=== PATIENT | female | born 1940 | race Caucasian/White ===

== ENCOUNTER → 2020-09-21 | Outpatient (CLI) | payer MEDICARE, OTHER ==
--- NOTE | 2020-09-21 11:05 | CT ---
EXAMINATION TYPE: CT brain wo con DATE OF EXAM: 09/21/2020 COMPARISON: Dizziness HISTORY: Dinzziness CT DLP: 1029.9 mGycm Automated exposure control for dose reduction was used. FINDINGS: There is moderate generalized degenerative change of the slightly greater central component. Low-atte nuation in the white matter is nonspecific. Tiny hypodensities within the basal ganglia could represe nt prominent Virchow-Jacky spaces or tiny remote lacunar infarct. No midline shift or mass effect. Intracranial atherosclerotic changes seen. No acute hemorrhage. Tiny calcification punctate within the right basal ganglia. Craniocervical junction maintained. Partially empty sella turcica. Nasal septal deviation seen with m inimal changes of chronic sinusitis. Calvarium intact. Orbits symmetric. IMPRESSION: 1. Degenerative and nonspecific white matter changes most typical remote ischemia. Greater central co mponent to the ventricular dilation raises the possibility of normal pressure hydrocephalus. Correlat e clinically.
== END | disposition home or self-care (01) ==
LOC: RADCTMAIN 10:13
PROVIDERS: ATTEND Family Medicine
DX: G31.9 Degenerative disease of nervous system, unspecified (principal)
CPT/HCPCS: 70450

== ENCOUNTER → 2021-09-26 | Outpatient (CLI) | payer MEDICARE, OTHER ==
--- NOTE | 2021-09-29 09:15 | MM ---
Reason for exam: screening (asymptomatic). History: Patient is postmenopausal. Benign stereotactic core biopsy of the left breast, 2013. Physical Findings: A clinical breast exam by your physician is recommended on an annual basis and results should be correlated with mammographic findings. MG 3D Screening Mammo W/Cad Bilateral CC and MLO view(s) were taken. No prior studies available for comparison. Finding: There are typically benign dystrophic, course, diffuse/scattered calcifications in both breasts. There is no discrete abnormality. ASSESSMENT: Benign, BI-RAD 2 RECOMMENDATION: Routine screening mammogram of both breasts in 1 year.
== END | disposition home or self-care (01) ==
LOC: RADMAMWWP 12:14
PROVIDERS: ATTEND Family Medicine
DX: Z12.31 Encounter for screening mammogram for malignant neoplasm of breast (principal)
CPT/HCPCS: 77063; 77067

== ENCOUNTER 2023-03-22 07:58 | Emergency (ER) | payer MEDICARE, OTHER ==
[2023-03-22 08:49] LABS: Appearance,Urine Clear (Clear); Bilirubin,Urine Negative (Negative); Blood,Urine Negative (Negative); Color,Urine Yellow; Glucose,Urine (UA) 1+ (Negative); Ketones,Urine Negative (Negative); PH, Urine 5.5 (5.0-8.0); Protein,Urine Trace (Negative); Specific Gravity,Urine >1.030 (1.001-1.035)
[2023-03-22 08:50] LABS: Leukocyte Esterase,Urine Negative (Negative); Nitrite,Urine Negative (Negative); Urobilinogen,Urine <2.0 mg/dL (<2.0)
[2023-03-22 08:58] LABS: Amphetamine Screen,Urine Not Detected (NotDetected); Barbiturate Screen,Urine Not Detected (NotDetected); Benzodiazepines Screen,Urine Not Detected (NotDetected); Cocaine Screen,Urine Not Detected (NotDetected); Methadone Screen, Urine Not Detected (NotDetected); Opiate Screen,Urine Not Detected (NotDetected); Oxycodone Screen, Urine Not Detected (NotDetected); Phencyclidine Screen,Urine Not Detected (NotDetected); Tricyclic Antidepressant,Urine Not Detected (NotDetected); Urn Cannabinoid Scrn Not Detected (NotDetected)
[2023-03-22] MEDS ORDERED: SODIUM CHLORIDE 0.9% 1,000 ML IV ONE (10:05)
--- NOTE | 2023-03-22 10:23 | ED ---
General Adult HPI - General Chief complaint: Psychiatric Symptoms Stated complaint: Psych eval Time Seen by Provider: 03/22/23 09:55 Source: patient, family, RN notes reviewed, old records reviewed Mode of arrival: ambulatory Limitations: no limitations - History of Present Illness Initial comments: Patient is an 82-year-old female with past medical history remarkable for hypertension, diabetes who presents emergency Department with her sister for michelle luation for psychiatric symptoms. Patient has been having somewhat auditory and tactile hallucinations that she believe she is been sexually molested by a spirit which she thinks is a cat. Has been ongoing for the last 2 months. She has no history of dementia. No history of psychiatric complaints. Is independent completes all of her normal ADLs. She does have intermittent episodes of sweating which is also over this time. As well as intermittent episodes of diarrhea which is over this time. However patient has no acute complaints at this time. She is a 4. She is convinced this is happening to her. Presents for further evaluation at this time. Denies any thoughts when herself or others. Does not believe she is hallucinating and denies any hallucinations. - Related Data Home Medications Medication Instructions Recorded Confirmed Aspercreme Lidocaine Roll On 1 applic TOPICAL DAILY PRN 03/22/23 03/22/23 Aspirin EC [Ecotrin Low Dose] 81 mg PO DAILY 03/22/23 03/22/23 Atorvastatin [Lipitor] 20 mg PO HS 03/22/23 03/22/23 Biotin [Biotin Disolve] 10,000 mcg PO DAILY 03/22/23 03/22/23 Cholecalciferol [Vitamin D3 (25 25 mcg PO DAILY 03/22/23 03/22/23 Mcg = 1000 Iu)] Exenatide Microspheres [Bydureon 2 mg SQ MO 03/22/23 03/22/23 Bcise Auto-Injector] Famotidine [Pepcid] 20 mg PO BID PRN 03/22/23 03/22/23 Ibuprofen [Motrin Ib] 200 - 400 mg PO Q8H PRN 03/22/23 03/22/23 Meclizine [Antivert] 25 mg PO DAILY 03/22/23 03/22/23 Methyl Salicylate/Menth/Camph 1 patch TRANSDERM DAILY PRN 03/22/23 03/22/23 [Salonpas 3.1%-6.0%-10.0% Patch] Sertraline [Zoloft] 25 mg PO DAILY 03/22/23 03/22/23 amLODIPine [Norvasc] 10 mg PO DAILY 03/22/23 03/22/23 lisinopriL [Zestril] 20 mg PO DAILY 03/22/23 03/22/23 metFORMIN HCL [Glucophage] 500 mg PO BID 03/22/23 03/22/23 Allergies Allergy/AdvReac Type Severity Reaction Status Date / Time No Known Allergies Allergy Verified 03/22/23 12:56 Review of Systems ROS Statement: Those systems with pertinent positive or pertinent negative responses have been documented in the HPI. Review of Systems: CONST: Denies fever EYES: Denies blurry vision ENT: Denies nasal congestion C/V: Denies Chest pain RESP: Denies shortness of breath GI: Denies abdominal pain : Denies dysuria SKIN: Denies rash. MSK: Denies joint pain. NEURO: Denies headache PSYCH: Denies suicidal and homicidal ideations/plans/attempts. Denies visual or auditory hallucinations. ROS Other: All systems not noted in ROS Statement are negative. Past Medical History Past Medical History: Diabetes Mellitus, Hyperlipidemia, Hypertension Additional Past Medical History / Comment(s): vertigo, chronic pain History of Any Multi-Drug Resistant Organisms: None Reported Past Surgical History: Cholecystectomy, Hysterectomy Past Psychological History: No Psychological Hx Reported Smoking Status: Current every day smoker Past Alcohol Use History: None Reported Past Drug Use History: None Reported General Exam - General Exam Comments Initial Comments: General: Appears in no acute distress. HEAD: Normal with no signs of head trauma. EYES: PERRLA, EOMI, conjunctiva normal, no discharge. ENT: Hearing grossly intact, normal oropharynx. RESPIRATORY: Clear breath sounds bilaterally. No wheezes, rales, or rhonchi. C/V: Regular rate and rhythm. S1 and S2 auscultated, no edema, peripheral pulses 2+ and intact throughout ABD: Abd is soft, nontender, nondistended EXT: Normal range of motion, no obvious deformity SKIN: No rashes or lesions observed on exposed skin. NEURO: Alert and oriented x 4. Cranial nerves II-XII intact. No focal sensory or strength deficits. Limitations: no limitations Course Vital Signs 03/22/23 08:08 Temperature 98.1 F Pulse Rate 86 Respiratory 20 Rate Blood Pressure 137/62 O2 Sat by Pulse 96 Oximetry Medical Decision Making - Medical Decision Making Was pt. sent in by a medical professional or institution (MANJU Arreguin, [employer], urgent care, hospital, or group home...) When possible be specific @ -No Did you speak to anyone other than the patient for history (EMS, parent, family, police, friend...)? What history was obtained from this source @ -I spoke with the patient's sister who is with her and helps with patient's history and baseline. Did you review nursing and triage notes (agree or disagree)? Why? @ -I reviewed and agree with nursing and triage notes Were old charts reviewed (outside hosp., previous admission, EMS record, old EKG, old radiological studies, urgent care reports/EKG's, group home records)? Report findings @ -Old charts reviewed Differential Diagnosis (chest pain, altered mental status, abdominal pain women, abdominal pain men, vaginal bleeding, weakness, fever, dyspnea, syncope, headache, dizziness, GI bleed, back pain, seizure, CVA, palpatations, mental health, musculoskeletal)? @ -Differential Altered Mental Status: Hypoglycemia, DKA, hypercapnia, ETOH, overdose, CO poisoning, trauma, myxedema coma, HTN encephalopathy, infection, encephalitis, psychosis, intercranial hemorrhage, hepatic encephalopathy, meningitis, CVA, this is not meant to be an all-inclusive list EKG interpreted by me (3pts min.). @ -As above X-rays interpreted by me (1pt min.). @ -Chest x-ray reveals no evidence of acute cardio pulmonary process. CT interpreted by me (1pt min.). @ -CT brain shows no evidence of acute intracranial process. U/S interpreted by me (1pt. min.). @ -None done What testing was considered but not performed or refused? (CT, X-rays, U/S, labs)? Why? @ -None What meds were considered but not given or refused? Why? @ -None Did you discuss the management of the patient with other professionals (professionals i.e. MANJU Arreguin, [employer], lab, RT, psych nurse, social group worker, federal java developer, teacher, deputy juvenile officer, case planner)? Give summary @ -No Was smoking cessation discussed for >3mins.? @ -No Was critical care preformed (if so, how long)? @ -No Were there social determinants of health that impacted care today? How? (Homel essness, low income, unemployed, alcoholism, drug addiction, transportation, low edu. Level, literacy, decrease access to med. care, halfway, rehab)? @ -No Was there de-escalation of care discussed even if they declined (Discuss DNR or withdrawal of care, Hospice)? DNR status @ -No What co-morbidities impacted this encounter? (DM, HTN, Smoking, COPD, CAD, Cancer, CVA, ARF, Chemo, Hep., AIDS, mental health diagnosis, sleep apnea, morbid obesity)? @ -None Was patient admitted / discharged? Hospital course, mention meds given and route, prescriptions, significant lab abnormalities, going to OR and other pertinent info. @ -I evaluated the patient when she was placed in a room. Triage obtain urine samples prior to my evaluation. Based on her presentation and physical exam, this could be psychiatric in nature but could also be secondary to a physical complaint. We'll obtain broad workup for altered mental status. Urinalysis and UDS already obtained are within acceptable limits. Family and patient are in agreement this plan. She'll be given a 1 L fluid bolus. Patient is placed in green scrubs for the time being. Vital signs within acceptable limits. Patient's imaging unremarkable. Patient's laboratory studies are also within acceptable limits. No clear evidence or reason for her symptoms. Discussed with patient as well as sister. UDS will evaluate the patient at this time. Alcohol is negative. EPS evaluated the patient. He notified me that patient does not meet inpatient criteria. Patient will follow-up with Dr. Alexander on an outpatient basis and possibly neurology as well. They were in agreement this plan. I instructed the patient to follow up with their PCP in the next 1-3 days. I explained that the patient should return to the emergency department if they experience any worsening symptoms. Strict return precautions were discussed with the patient. The patient expressed understanding of these instructions. I answered all questions that the patient had. The patient was discharged home in [good] condition with their prescriptions and follow up information. Undiagnosed new problem with uncertain prognosis? @ -No Drug Therapy requiring intensive monitoring for toxicity (Heparin, Nitro, Insulin, Cardizem)? @ -No Were any procedures done? @ -No Diagnosis/symptom? @ -Hallucinations, encounter for psychiatric evaluation Acute, or Chronic, or Acute on Chronic? @ -Acute Uncomplicated (without systemic symptoms) or Complicated (systemic symptoms)? @ -Uncomplicated Side effects of treatment? @ -none Exacerbation, Progression, or Severe Exacerbation] @ -no Poses a threat to life or bodily function? @ -no - Lab Data Result diagrams: 03/22/23 11:02 03/22/23 10:56 Lab Results 03/22/23 03/22/23 03/22/23 Range/Units 08:11 10:56 11:02 WBC 7.1 (3.8-10.6) k/uL RBC 4.30 (3.80-5.40) m/uL Hgb 13.6 (11.4-16.0) gm/dL Hct 40.6 (34.0-46.0) % MCV 94.3 (80.0-100.0) fL MCH 31.6 (25.0-35.0) pg MCHC 33.5 (31.0-37.0) g/dL RDW 14.1 (11.5-15.5) % Plt Count 223 (150-450) k/uL MPV 8.1 Neutrophils % 71 % Lymphocytes % 21 % Monocytes % 5 % Eosinophils % 1 % Basophils % 0 % Neutrophils # 5.0 (1.3-7.7) k/uL Lymphocytes # 1.5 (1.0-4.8) k/uL Monocytes # 0.4 (0-1.0) k/uL Eosinophils # 0.1 (0-0.7) k/uL Basophils # 0.0 (0-0.2) k/uL PT (10.0-12.5) sec INR (<1.2) APTT (22.0-30.0) sec Sodium 139 (137-145) mmol/L Potassium 3.7 (3.5-5.1) mmol/L Chloride 105 (98-107) mmol/L Carbon Dioxide 24 (22-30) mmol/L Anion Gap 10 mmol/L BUN 14 (7-17) mg/dL Creatinine 0.43 L (0.52-1.04) mg/dL Est GFR (CKD-EPI)AfAm >90 (>60 ml/min/1.73 sqM) Est GFR (CKD-EPI)NonAf >90 (>60 ml/min/1.73 sqM) Glucose 122 H (74-99) mg/dL Calcium 9.5 (8.4-10.2) mg/dL Total Bilirubin 0.6 (0.2-1.3) mg/dL AST 23 (14-36) U/L ALT 22 (4-34) U/L Alkaline Phosphatase 71 (38-126) U/L Ammonia (<30) umol/L Total Protein 6.9 (6.3-8.2) g/dL Albumin 4.0 (3.5-5.0) g/dL TSH 0.185 L (0.465-4.680) mIU/L Urine Color Yellow Urine Appearance Clear (Clear) Urine pH 5.5 (5.0-8.0) Ur Specific [place] >1.030 (1.001-1.035) Urine Protein Trace (Negative) Urine Glucose (UA) 1+ (Negative) Urine Ketones Negative (Negative) Urine Blood Negative (Negative) Urine Nitrite Negative (Negative) Urine Bilirubin Negative (Negative) Urine Urobilinogen <2.0 (<2.0) mg/dL Ur Leukocyte Esterase Negative (Negative) Urine Opiates Screen Not Detected (NotDetected) Ur Oxycodone Screen Not Detected (NotDetected) Urine Methadone Screen Not Detected (NotDetected) Ur Propoxyphene Screen Not Detected (NotDetected) Ur Barbiturates Screen Not Detected (NotDetected) U Tricyclic Antidepress Not Detected (NotDetected) Ur Phencyclidine Scrn Not Detected (NotDetected) Ur Amphetamines Screen Not Detected (NotDetected) U Methamphetamines Scrn Not Detected (NotDetected) U Benzodiazepines Scrn Not Detected (NotDetected) Urine Cocaine Screen Not Detected (NotDetected) U Marijuana (THC) Screen Not Detected (NotDetected) Serum Alcohol <10 mg/dL 03/22/23 03/22/23 Range/Units 11:02 11:24 WBC (3.8-10.6) k/uL RBC (3.80-5.40) m/uL Hgb (11.4-16.0) gm/dL Hct (34.0-46.0) % MCV (80.0-100.0) fL MCH (25.0-35.0) pg MCHC (31.0-37.0) g/dL RDW (11.5-15.5) % Plt Count (150-450) k/uL MPV Neutrophils % % Lymphocytes % % Monocytes % % Eosinophils % % Basophils % % Neutrophils # (1.3-7.7) k/uL Lymphocytes # (1.0-4.8) k/uL Monocytes # (0-1.0) k/uL Eosinophils # (0-0.7) k/uL Basophils # (0-0.2) k/uL PT 10.3 (10.0-12.5) sec INR 0.9 (<1.2) APTT 20.3 L (22.0-30.0) sec Sodium (137-145) mmol/L Potassium (3.5-5.1) mmol/L Chloride (98-107) mmol/L Carbon Dioxide (22-30) mmol/L Anion Gap mmol/L BUN (7-17) mg/dL Creatinine (0.52-1.04) mg/dL Est GFR (CKD-EPI)AfAm (>60 ml/min/1.73 sqM) Est GFR (CKD-EPI)NonAf (>60 ml/min/1.73 sqM) Glucose (74-99) mg/dL Calcium (8.4-10.2) mg/dL Total Bilirubin (0.2-1.3) mg/dL AST (14-36) U/L ALT (4-34) U/L Alkaline Phosphatase (38-126) U/L Ammonia 10 (<30) umol/L Total Protein (6.3-8.2) g/dL Albumin (3.5-5.0) g/dL TSH (0.465-4.680) mIU/L Urine Color Urine Appearance (Clear) Urine pH (5.0-8.0) Ur Specific [place] (1.001-1.035) Urine Protein (Negative) Urine Glucose (UA) (Negative) Urine Ketones (Negative) Urine Blood (Negative) Urine Nitrite (Negative) Urine Bilirubin (Negative) Urine Urobilinogen (<2.0) mg/dL Ur Leukocyte Esterase (Negative) Urine Opiates Screen (NotDetected) Ur Oxycodone Screen (NotDetected) Urine Methadone Screen (NotDetected) Ur Propoxyphene Screen (NotDetected) Ur Barbiturates Screen (NotDetected) U Tricyclic Antidepress (NotDetected) Ur Phencyclidine Scrn (NotDetected) Ur Amphetamines Screen (NotDetected) U Methamphetamines Scrn (NotDetected) U Benzodiazepines Scrn (NotDetected) Urine Cocaine Screen (NotDetected) U Marijuana (THC) Screen (NotDetected) Serum Alcohol mg/dL - EKG Data -: EKG Interpreted by Me EKG Comments: 12-lead Electrocardiogram Interpretation Note EKG was reviewed and interpreted by myself. 12-lead ECG performed at 1018 is interpreted by me as revealing normal sinus rhythm at a rate of 60 beats per minute. [place] is normal. [place] interval is 149 ms, QRS duration is 100 ms, QTc is 393 ms.. There were no ST or T wave abnormalities to suggest myocardial ischemia or injury. R wave progression across the precordium was satisfactory. By my interpretation this EKG is non-diagnostic for acute ischemia. Disposition Clinical Impression: Hallucination, Encounter for psychological evaluation Disposition: HOME SELF-CARE Condition: Good Additional Instructions: follow safety plan. follow up with Dr. Alexander in the office and possible neuro as well. Is patient prescribed a controlled substance at d/c from ED?: No Referrals: Chris Alexander MD [Primary Care Provider] - 1-2 days Time of Disposition: 14:56
[2023-03-22 11:15] LABS: Basophils % (A) 0 %; Eosinophils # (A) 0.1 k/uL (0-0.7); Eosinophils % (A) 1 %; HCT 40.6 % (34.0-46.0); HGB 13.6 gm/dL (11.4-16.0); Lymphocytes # (A) 1.5 k/uL (1.0-4.8); Lymphocytes % (A) 21 %; MCH 31.6 pg (25.0-35.0); MCHC 33.5 g/dL (31.0-37.0); MCV 94.3 fL (80.0-100.0); Mean Platelet Volume 8.1; Monocytes # (A) 0.4 k/uL (0-1.0); Monocytes % (A) 5 %; Neutrophils % (A) 71 %; Platelet Count 223 k/uL (150-450); RDW 14.1 % (11.5-15.5); WBC 7.1 k/uL (3.8-10.6)
--- NOTE | 2023-03-22 11:19 | CT ---
EXAMINATION TYPE: CT brain wo con DATE OF EXAM: 03/22/2023 COMPARISON: CT angiography of the head and neck on 07/01/2022. HISTORY: Altered mental status. CT DLP: 1100.3 mGycm Automated exposure control for dose reduction was used. FINDINGS: There is no acute intracranial hemorrhage, mass, mass effect, midline shift, extra-axial fluid collec tion or hydrocephalus. There is mild hypoattenuation in the periventricular white matter which is likely related to chronic ischemic small vessel change. There is no acute major vessel infarct. IMPRESSION: CHRONIC CHANGES WITH NO ACUTE INTRACRANIAL PROCESS IDENTIFIED.
--- NOTE | 2023-03-22 11:21 | XR ---
EXAMINATION TYPE: XR chest 2V DATE OF EXAM: 03/22/2023 COMPARISON: NONE HISTORY: Altered mental status. TECHNIQUE: Frontal and lateral views of the chest are obtained. FINDINGS: There is no focal air space opacity, pleural effusion, or pneumothorax seen. The cardiac silhouette size is mildly enlarged and the pulmonary vessels are within normal limits. Is within norm al limits. The osseous structures are intact. IMPRESSION: Mild cardiomegaly with no acute findings otherwise seen.
[2023-03-22 11:37] LABS: ALT 22 U/L (4-34); AST 23 U/L (14-36); African American GFR (CKD) >90 (>60 ml/min/1.73 sqM); Alcohol <10 mg/dL; Alkaline Phosphatase 71 U/L (38-126); Anion Gap 10 mmol/L; Blood Urea Nitrogen 14 mg/dL (7-17); Calcium 9.5 mg/dL (8.4-10.2); Carbon Dioxide 24 mmol/L (22-30); Chloride 105 mmol/L (98-107); Glucose 122 mg/dL (74-99); Non-African American GFR(CKD) >90 (>60 ml/min/1.73 sqM); Potassium 3.7 mmol/L (3.5-5.1); Sodium 139 mmol/L (137-145); Total Bilirubin 0.6 mg/dL (0.2-1.3); Total Protein 6.9 g/dL (6.3-8.2)
[2023-03-22 11:59] LABS: INR 0.9 (<1.2); Prothrombin Time 10.3 sec (10.0-12.5)
[2023-03-22 12:27] LABS: Partial Thromboplastin Time 20.3 sec (22.0-30.0)
[2023-03-22 15:44] VITALS: BP 140/65; PULSE 80; RESP 16; TEMP 98.2
== END 2023-03-22 15:41 | disposition home or self-care (01) ==
LOC: EC 07:58
DX: Z00.8 Encounter for other general examination (principal); R44.3 Hallucinations, unspecified; E11.9 Type 2 diabetes mellitus without complications; E78.5 Hyperlipidemia, unspecified; F17.200 Nicotine dependence, unspecified, uncomplicated; Z79.82 Long term (current) use of aspirin; Z79.84 Long term (current) use of oral hypoglycemic drugs; Z79.899 Other long term (current) drug therapy; Z90.49 Acquired absence of other specified parts of digestive tract
CPT/HCPCS: 82075; 36415; 93005; 80053; 82140; 84443; 85025; 85610; 85730; 81003; 80306; 71046; 70450; 99285; G0480; 80320

== ENCOUNTER → 2024-01-03 | Outpatient (CLI) | payer MEDICARE, OTHER ==
--- NOTE | 2024-01-28 09:06 | MM ---
Reason for Exam: Screening (asymptomatic). Last mammogram was performed 2 year(s) and 3 month(s) ago. Patient History: Menarche at age 14. First Full-Term at age 26. Hysterectomy at age 51. Postmenopausal. 2013, Benign Stereotactic Core Biopsy on the left side. Risk Values: Laurie 5 year model risk: 2.1%. NCI Lifetime model risk: 2.7%. Prior Study Comparison: 09/26/2021 Bilateral Screening Mammogram, [facility]. Tissue Density: The breasts are heterogeneously dense, which may obscure small masses. Findings: Analyzed By CAD. Right breast: There is no suspicious group of microcalcifications or new suspicious mass. Benign-appearing calcifications right breast. Left breast: There is no suspicious group of microcalcifications or new suspicious mass. Benign-appearing calcifications left breast. Overall Assessment: Benign, BI-RAD 2 Management: Screening Mammogram of both breasts in [address] [facility] will attempt to contact patient to return for supplemental views and ultrasound if indicated. Patient should continue monthly self-breast exams. A clinical breast exam by your physician is recommended on an annual basis. This exam should not preclude additional follow-up of suspicious palpable abnormalities. Note on Laurie scores and lifetime risk: 1. A Laurie score greater than 3% is considered moderate risk. If this is the case, consider specialist referral to assess eligibility for a risk reducing agent. 2. If overall lifetime risk for the development of breast cancer is 20% or higher, the patient may qualify for future screening with alternating mammogram and breast MRI. Electronically signed and approved by: Mookie Francisco DO
== END | disposition home or self-care (01) ==
LOC: RADMAMWWP 12:00
PROVIDERS: ATTEND Family Medicine
DX: Z12.31 Encounter for screening mammogram for malignant neoplasm of breast (principal); Z78.0 Asymptomatic menopausal state; R92.333 Mammographic heterogeneous density, bilateral breasts
CPT/HCPCS: 77063; 77067

== ENCOUNTER 2024-02-22 19:17 | Emergency (ER) | payer MEDICARE, OTHER ==
[2024-02-22 19:39] VITALS: RESP 16; TEMP 98.3
--- NOTE | 2024-02-22 19:48 | ED ---
Abdominal Pain HPI - General Chief Complaint: Abdominal Pain Stated Complaint: abd pain Time Seen by Provider: 02/22/24 19:30 Source: patient, family, RN notes reviewed Mode of arrival: ambulatory Limitations: no limitations - History of Present Illness Initial Comments: This is an 83-year-old female who presents emergency department company by her sister with chief complaint of diffuse abdominal pain, nausea, and anorexia that has been present over the past few weeks. Patient's sister at bedside states that over the past week she has been experiencing increasing weakness and complaining of worsening abdominal pain. Patient states that she will also experience intermittent diarrhea. She denies emesis, chest pain, shortness of breath, difficulty breathing, hematochezia, melena, urinary symptoms. Previous surgical abdominal history of hysterectomy. Patient last colonoscopy was many years ago and states that she is attempting to contact her GI specialist to schedule a appointment for this year. - Related Data Home Medications Medication Instructions Recorded Confirmed Aspercreme Lidocaine Roll On 1 applic TOPICAL DAILY PRN 03/22/23 03/22/23 Aspirin EC [Ecotrin Low Dose] 81 mg PO DAILY 03/22/23 03/22/23 Atorvastatin [Lipitor] 20 mg PO HS 03/22/23 03/22/23 Biotin [Biotin Disolve] 10,000 mcg PO DAILY 03/22/23 03/22/23 Cholecalciferol [Vitamin D3 (25 25 mcg PO DAILY 03/22/23 03/22/23 Mcg = 1000 Iu)] Exenatide Microspheres [Bydureon 2 mg SQ MO 03/22/23 03/22/23 Bcise Auto-Injector] Famotidine [Pepcid] 20 mg PO BID PRN 03/22/23 03/22/23 Ibuprofen [Motrin Ib] 200 - 400 mg PO Q8H PRN 03/22/23 03/22/23 Meclizine [Antivert] 25 mg PO DAILY 03/22/23 03/22/23 Methyl Salicylate/Menth/Camph 1 patch TRANSDERM DAILY PRN 03/22/23 03/22/23 [Salonpas 3.1%-6.0%-10.0% Patch] Sertraline [Zoloft] 25 mg PO DAILY 03/22/23 03/22/23 amLODIPine [Norvasc] 10 mg PO DAILY 03/22/23 03/22/23 lisinopriL [Zestril] 20 mg PO DAILY 03/22/23 03/22/23 metFORMIN HCL [Glucophage] 500 mg PO BID 03/22/23 03/22/23 Allergies Allergy/AdvReac Type Severity Reaction Status Date / Time No Known Allergies Allergy Verified 02/22/24 19:38 Review of Systems ROS Statement: Those systems with pertinent positive or pertinent negative responses have been documented in the HPI. ROS Other: All systems not noted in ROS Statement are negative. Past Medical History Past Medical History: Diabetes Mellitus, Hyperlipidemia, Hypertension Additional Past Medical History / Comment(s): vertigo, chronic pain History of Any Multi-Drug Resistant Organisms: None Reported Past Surgical History: Cholecystectomy, Hysterectomy Past Psychological History: No Psychological Hx Reported Smoking Status: Current every day smoker Past Alcohol Use History: None Reported Past Drug Use History: None Reported General Exam Limitations: no limitations General appearance: alert, in no apparent distress Eye exam: Present: normal appearance, PERRL, EOMI. Absent: scleral icterus, conjunctival injection, periorbital swelling ENT exam: Present: normal exam, mucous membranes moist Respiratory exam: Present: normal lung sounds bilaterally, wheezes (diffuse, b ilaterally- hx of smoking (current smoker)). Absent: respiratory distress, rales, rhonchi, stridor Cardiovascular Exam: Present: regular rate, normal rhythm, normal heart sounds. Absent: systolic murmur, diastolic murmur, rubs, gallop, clicks GI/Abdominal exam: Present: soft, distended, tenderness (Diffuse), normal bowel sounds. Absent: guarding, rebound, rigid Extremities exam: Present: normal inspection, full ROM, normal capillary refill. Absent: tenderness, pedal edema, joint swelling, calf tenderness Skin exam: Present: warm, dry, intact, normal color. Absent: rash Course Vital Signs 02/22/24 02/23/24 19:35 00:23 Temperature 98.3 F Pulse Rate 83 65 Respiratory 16 16 Rate Blood Pressure 147/67 133/48 O2 Sat by Pulse 94 L 95 Oximetry Medical Decision Making - Medical Decision Making Was pt. sent in by a medical professional or institution (, PA, INVASIVE MANAGER, urgent care, hospital, or [place] health care facility...) When possible be specific @ -No Did you speak to anyone other than the patient for history (EMS, parent, family, police, friend...)? What history was obtained from this source @ -No Did you review nursing and triage notes (agree or disagree)? Why? @ -I reviewed and agree with nursing and triage notes Were old charts reviewed (outside hosp., previous admission, EMS record, old EKG, old radiological studies, urgent care reports/EKG's, [place] health care facility records)? Report findings @ -No old charts were reviewed Differential Diagnosis (chest pain, altered mental status, abdominal pain women, abdominal pain men, vaginal bleeding, weakness, fever, dyspnea, syncope, headache, dizziness, GI bleed, back pain, seizure, CVA, palpatations, mental health, musculoskeletal)? @ -Differential Abdominal Pain Women: Appendicitis, Cholecystitis, diverticulosis, ischemic bowel, pancreatitis, hepatitis, UTI, gastroenteritis, AAA, incarcerated hernia, bowel obstruction, constipation, inflammatory bowel, hepatitis, peptic ulcer disease, splenic infarction, perforated viscus, vulvitis, ovarian torsion, PID, kidney stone, placenta abruption, this is not meant to be an all-inclusive list EKG interpreted by me (3pts min.). @ -None X-rays interpreted by me (1pt min.). @ -None done CT interpreted by me (1pt min.). @ -CT of the abdomen pelvis with contrast reveals evidence of the biliary tree which could be related to postcholecystectomy with no clearly acute abnormality demonstrated. U/S interpreted by me (1pt. min.). @ -None done What testing was considered but not performed or refused? (CT, X-rays, U/S, labs)? Why? @ -None What meds were considered but not given or refused? Why? @ -None Did you discuss the management of the patient with other professionals (professionals i.e. , PA, INVASIVE MANAGER, lab, RT, psych nurse, social work nurse, corporation lawyer, teacher, chief risk officer, case making machine operator)? Give summary @ -No Was smoking cessation discussed for >3mins.? @ -No Was critical care preformed (if so, how long)? @ -No Were there social determinants of health that impacted care today? How? (Homelessness, low income, unemployed, alcoholism, drug addiction, lenz sportation, low edu. Level, literacy, decrease access to med. care, detention, rehab)? @ -No Was there de-escalation of care discussed even if they declined (Discuss DNR or withdrawal of care, Hospice)? DNR status @ -No What co-morbidities impacted this encounter? (DM, HTN, Smoking, COPD, CAD, Cancer, CVA, ARF, Chemo, Hep., AIDS, mental health diagnosis, sleep apnea, morbid obesity)? @ -None Was patient admitted / discharged? Hospital course, mention meds given and route, prescriptions, significant lab abnormalities, going to OR and other pertinent info. @ -Discharge. 83-year-old female with diffuse abdominal pain. On examination patient's vitals are stable. She is noted to have diffuse abdominal pain to palpation most notable in the left lower quadrant. Patient is provided with antiemetics and analgesics pending laboratory results and CT imaging. She is agreed this plan. Also on examination patient is noted to have signs of clinical dehydration therefore she provided with a liter fluid bolus. labs grossly within normal limits aside from an elevated lactic acid of 2.9 that is likely secondary to dehydration. Urinalysis negative for signs of infection. CT imaging no acute abnormality demonstrated. Reflex lactic acid has decreased. Recommend that patient follow-up outpatient with her primary care provider as instructed. She is provided with starter packs of Zofran and Tylenol 3 to take as needed. All questions answered at bedside and strict return parison to the patient she is verbalized understanding. Case discussed with Dr. Arriaza Undiagnosed new problem with uncertain prognosis? @ -No Drug Therapy requiring intensive monitoring for toxicity (Heparin, Nitro, Insulin, Cardizem)? @ -No Were any procedures done? @ -No Diagnosis/symptom? @ -unspecified abdominal pain Acute, or Chronic, or Acute on Chronic? @ -acute Uncomplicated (without systemic symptoms) or Complicated (systemic symptoms)? @ -Uncomplicated Side effects of treatment? @ -No Exacerbation, Progression, or Severe Exacerbation? @ -No Poses a threat to life or bodily function? How? (Chest pain, USA, SD, pneumonia, PE, COPD, DKA, ARF, appy, cholecystitis, CVA, Diverticulitis, Homicidal, Suicidal, threat to staff... and all critical care pts) @ -No - Lab Data Result diagrams: 02/22/24 20:37 02/22/24 20:37 Lab Results 02/22/24 02/22/24 02/22/24 Range/Units 20:37 20:37 20:37 WBC 7.1 (3.8-10.6) k/uL RBC 4.15 (3.80-5.40) m/uL Hgb 13.0 (11.4-16.0) gm/dL Hct 39.4 (34.0-46.0) % MCV 94.9 (80.0-100.0) fL MCH 31.3 (25.0-35.0) pg MCHC 32.9 (31.0-37.0) g/dL RDW 14.2 (11.5-15.5) % Plt Count 249 (150-450) k/uL MPV 8.5 Neutrophils % 73 % Lymphocytes % 17 % Monocytes % 7 % Eosinophils % 2 % Basophils % 0 % Neutrophils # 5.2 (1.3-7.7) k/uL Lymphocytes # 1.2 (1.0-4.8) k/uL Monocytes # 0.5 (0-1.0) k/uL Eosinophils # 0.1 (0-0.7) k/uL Basophils # 0.0 (0-0.2) k/uL Sodium 140 (137-145) mmol/L Potassium 3.4 L (3.5-5.1) mmol/L Chloride 107 (98-107) mmol/L Carbon Dioxide 27 (22-30) mmol/L Anion Gap 6 mmol/L BUN 16 (7-17) mg/dL Creatinine 0.50 L (0.52-1.04) mg/dL Est GFR (CKD-EPI)AfAm >90 (>60 ml/min/1.73 sqM) Est GFR (CKD-EPI)NonAf >90 (>60 ml/min/1.73 sqM) Glucose 148 H (74-99) mg/dL Lactic Ac Sepsis Rflx Plasma Lactic Acid Gunner (0.7-2.0) mmol/L Calcium 9.3 (8.4-10.2) mg/dL Total Bilirubin 0.5 (0.2-1.3) mg/dL AST 23 (14-36) U/L ALT 19 (4-34) U/L Alkaline Phosphatase 66 (38-126) U/L Total Protein 6.5 (6.3-8.2) g/dL Albumin 4.1 (3.5-5.0) g/dL Amylase 48 (30-110) U/L Lipase 67 (23-300) U/L Urine Color Yellow Urine Appearance Cloudy H (Clear) Urine pH 5.5 (5.0-8.0) Ur Specific Floral 1.023 (1.001-1.035) Urine Protein Negative (Negative) Urine Glucose (UA) Negative (Negative) Urine Ketones Negative (Negative) Urine Blood Negative (Negative) Urine Nitrite Negative (Negative) Urine Bilirubin Negative (Negative) Urine Urobilinogen <2.0 (<2.0) mg/dL Ur Leukocyte Esterase Small H (Negative) Urine RBC <1 (0-5) /hpf Urine WBC 1 (0-5) /hpf Ur Squamous Epith Cells 16 H (0-4) /hpf Calcium Oxalate Crystal Occasional H (None) /hpf Urine Bacteria Rare H (None) /hpf Hyaline Casts 1 (0-2) /lpf Urine Mucus Occasional H (None) /hpf Urine Yeast (Budding) Occasional H (None) /hpf 02/22/24 02/22/24 02/22/24 Range/Units 20:37 21:15 23:33 WBC (3.8-10.6) k/uL RBC (3.80-5.40) m/uL Hgb (11.4-16.0) gm/dL Hct (34.0-46.0) % MCV (80.0-100.0) fL MCH (25.0-35.0) pg MCHC (31.0-37.0) g/dL RDW (11.5-15.5) % Plt Count (150-450) k/uL MPV Neutrophils % % Lymphocytes % % Monocytes % % Eosinophils % % Basophils % % Neutrophils # (1.3-7.7) k/uL Lymphocytes # (1.0-4.8) k/uL Monocytes # (0-1.0) k/uL Eosinophils # (0-0.7) k/uL Basophils # (0-0.2) k/uL Sodium (137-145) mmol/L Potassium (3.5-5.1) mmol/L Chloride (98-107) mmol/L Carbon Dioxide (22-30) mmol/L Anion Gap mmol/L BUN (7-17) mg/dL Creatinine (0.52-1.04) mg/dL Est GFR (CKD-EPI)AfAm (>60 ml/min/1.73 sqM) Est GFR (CKD-EPI)NonAf (>60 ml/min/1.73 sqM) Glucose (74-99) mg/dL Lactic Ac Sepsis Rflx Y Plasma Lactic Acid Gunner 2.9 H* 1.3 (0.7-2.0) mmol/L Calcium (8.4-10.2) mg/dL Total Bilirubin (0.2-1.3) mg/dL AST (14-36) U/L ALT (4-34) U/L Alkaline Phosphatase (38-126) U/L Total Protein (6.3-8.2) g/dL Albumin (3.5-5.0) g/dL Amylase (30-110) U/L Lipase (23-300) U/L Urine Color Urine Appearance (Clear) Urine pH (5.0-8.0) Ur Specific Floral (1.001-1.035) Urine Protein (Negative) Urine Glucose (UA) (Negative) Urine Ketones (Negative) Urine Blood (Negative) Urine Nitrite (Negative) Urine Bilirubin (Negative) Urine Urobilinogen (<2.0) mg/dL Ur Leukocyte Esterase (Negative) Urine RBC (0-5) /hpf Urine WBC (0-5) /hpf Ur Squamous Epith Cells (0-4) /hpf Calcium Oxalate Crystal (None) /hpf Urine Bacteria (None) /hpf Hyaline Casts (0-2) /lpf Urine Mucus (None) /hpf Urine Yeast (Budding) (None) /hpf Disposition Clinical Impression: Lower abdominal pain, unspecified Disposition: HOME SELF-CARE Condition: Good Instructions (If sedation given, give patient instructions): Abdominal Pain (ED) Additional Instructions: Return to the emergency department for any new or worsening symptoms. Recommend follow-up with your primary care provider within the next week for further evaluation. Is patient prescribed a controlled substance at d/c from ED?: No Referrals: Chris Alexander MD [Primary Care Provider] - 1-2 days Time of Disposition: 23:53
[2024-02-22] MEDS: ONDANSETRON 4 MG/2 ML VIAL IVP STA (20:35)
[2024-02-22] MEDS: MORPHINE SULFATE 4 MG/ML SYRINGE IVP STA (20:36)
[2024-02-22] MEDS: SODIUM CHLORIDE 0.9% 500 ML 500 ML IV STA (20:37)
[2024-02-22 20:58] LABS: Basophils % (A) 0 %; Eosinophils # (A) 0.1 k/uL (0-0.7); Eosinophils % (A) 2 %; HCT 39.4 % (34.0-46.0); Lymphocytes # (A) 1.2 k/uL (1.0-4.8); Lymphocytes % (A) 17 %; MCH 31.3 pg (25.0-35.0); MCHC 32.9 g/dL (31.0-37.0); MCV 94.9 fL (80.0-100.0); Mean Platelet Volume 8.5; Monocytes # (A) 0.5 k/uL (0-1.0); Monocytes % (A) 7 %; Neutrophils # (A) 5.2 k/uL (1.3-7.7); Neutrophils % (A) 73 %; Platelet Count 249 k/uL (150-450); RBC 4.15 m/uL (3.80-5.40); RDW 14.2 % (11.5-15.5); WBC 7.1 k/uL (3.8-10.6)
[2024-02-22 21:06] LABS: ALT 19 U/L (4-34); AST 23 U/L (14-36); African American GFR (CKD) >90 (>60 ml/min/1.73 sqM); Albumin 4.1 g/dL (3.5-5.0); Alkaline Phosphatase 66 U/L (38-126); Amylase 48 U/L (30-110); Anion Gap 6 mmol/L; Blood Urea Nitrogen 16 mg/dL (7-17); Calcium 9.3 mg/dL (8.4-10.2); Carbon Dioxide 27 mmol/L (22-30); Chloride 107 mmol/L (98-107); Glucose 148 mg/dL (74-99); Lipase 67 U/L (23-300); Non-African American GFR(CKD) >90 (>60 ml/min/1.73 sqM); Potassium 3.4 mmol/L (3.5-5.1); Sodium 140 mmol/L (137-145); Total Bilirubin 0.5 mg/dL (0.2-1.3); Total Protein 6.5 g/dL (6.3-8.2)
[2024-02-22 21:36] LABS: Appearance,Urine Cloudy (Clear); Bacteria,Urine Rare /hpf; Bilirubin,Urine Negative (Negative); Blood,Urine Negative (Negative); Budding Yeast,Urine Occasional /hpf; Calcium Oxalate Crystals,Urine Occasional /hpf; Color,Urine Yellow; Glucose,Urine (UA) Negative (Negative); Hyaline Casts,Urine 1 /lpf (0-2); Ketones,Urine Negative (Negative); Leukocyte Esterase,Urine Small (Negative); Mucus,Urine Occasional /hpf; Nitrite,Urine Negative (Negative); PH, Urine 5.5 (5.0-8.0); Protein,Urine Negative (Negative); RBC,Urine <1 /hpf (0-5); Specific Gravity,Urine 1.023 (1.001-1.035); Squamous Epithelial Cell,Urine 16 /hpf (0-4); Urobilinogen,Urine <2.0 mg/dL (<2.0); WBC,Urine 1 /hpf (0-5)
--- NOTE | 2024-02-22 23:07 | CT ---
EXAMINATION TYPE: CT abdomen pelvis w con CT DLP: 852 mGycm, Automated exposure control for dose reduction was used. DATE OF EXAM: 02/22/2024 9:51 PM COMPARISON: None. CLINICAL INDICATION:Female, 83 years old with history of diffuse ab. pain, diarrhea, nausea; abdomina l pain, nausea and decreased appetite for months TECHNIQUE: Axial CT of the abdomen and pelvis. Sagittal and coronal reformats were created on a [employer] workstation. Contrast used:100 ml mL of Isovue 300 with IV Contrast, (none if empty) Oral contrast used: without Oral Contrast (none if empty) FINDINGS: LOWER CHEST: Mild bibasilar scarring and/or subsegmental atelectasis. Heart size upper normal. Modera te coronary artery, aortic valve, and mitral valve calcifications. Mildly prominent pericardial fat w ithout pericardial effusion. ABDOMEN LIVER: Unremarkable GALLBLADDER AND BILE DUCTS: Gallbladder is surgically absent. Mild/moderate dilatation of the intrahe patic and extrahepatic biliary tree. The CBD measures as large as 12 mm. No clear evidence of calcifi ed choledocholithiasis; there is a punctate density seen which could potentially be a tiny choledocho lith versus adjacent vessel. PANCREAS: Fatty infiltrated without acute finding. SPLEEN: Unremarkable. ADRENAL GLANDS: Mildly thickened, may be seen with hyperplasia.. KIDNEYS AND URETERS: Kidneys enhance symmetrically. No evidence of hydronephrosis or visible renal ca lculus. The ureters are unremarkable. Small cyst mid to lower pole right kidney. PELVIS BLADDER: Unremarkable REPRODUCTIVE: Uterus not seen, likely absent. Uncertain if the ovaries remain, but could be atrophic. No pelvic mass. ABDOMEN & PELVIS STOMACH AND BOWEL: Small sliding hiatal hernia. Stomach and small bowel are nondistended, no evidence of obstruction. The appendix is not seen with certainty but there is no inflammatory process seen in the pericecal region. Mild/moderate stool throughout the colon. There are multiple diverticula di stally, most numerous and concentrated in the sigmoid region. Nonspecific mildly thickened appearance of the colonic wall in this region, may be change related to the diverticular disease itself, as the re is no definite focal inflammatory process noted. PERITONEUM/RETROPERITONEUM: No evidence of pneumoperitoneum or free fluid. VASCULATURE: Moderate atherosclerotic calcifications are present throughout the abdominal aorta and i ts branches. No evidence of aortic aneurysm. Moderate stenoses of the proximal celiac, superior mese nteric, right more than left renal arteries. Additional calcifications throughout the iliofemoral ar teries without high-grade stenosis seen. LYMPH NODES: No enlarged nodes by CT size criteria. SOFT TISSUE/ABDOMINAL WALL: Small fat-containing umbilical hernia. MUSCULOSKELETAL: No acute osseous abnormalities. Moderate disc degeneration changes are present throu ghout the thoracolumbar spine. IMPRESSION: 1. Prominence of the biliary tree, could be related to senescent and post-cholecystectomy changes. C orrelate clinically, with LFTs. 2. No clearly acute abnormality demonstrated. 3. Diverticulosis coli. 4. Other chronic and likely incidental findings, as described above. [facility], , 02/22/2024 11:04 PM
[2024-02-23] MEDS: ACET/COD 300 MG/30 MG STARTER PACK 6 TAB BTL PO STA (00:19)
[2024-02-23] MEDS: ONDANSETRON 4 MG ODT STARTER PACK 2 TAB BTL PO STA (00:20)
[2024-02-23 00:24] VITALS: BP 133/48; PULSE 65
== END 2024-02-23 00:24 | disposition home or self-care (01) ==
LOC: EC 19:17
CPT/HCPCS: 36415; 74177; 80053; 81001; 82150; 83605; 83690; 85025; 96361; 96374; 96375; 99284

== ENCOUNTER 2024-08-26 18:55 | Observation (INO) | payer MEDICARE, OTHER ==
--- NOTE | 2024-08-26 19:33 | ED ---
General Adult HPI - General Chief complaint: Dizziness Stated complaint: Vertigo Time Seen by Provider: 08/26/24 19:03 Source: patient, EMS, RN notes reviewed Mode of arrival: EMS Limitations: no limitations - History of Present Illness Initial comments: 83-year-old female presents to the emergency department for evaluation of dizziness. Patient states that this been going on for 5 days. She states that it is worse when she is up and walking. She feels like she cannot walk straight. She has had this multiple times in the past and takes medication for this as needed. She did take her medication without relief. She denies any recent fever but admits to chills. Denies headache. She does admit to chest pressure and feeling short of breath. - Related Data Home Medications Medication Instructions Recorded Confirmed Aspercreme Lidocaine Roll On 1 applic TOPICAL DAILY PRN 03/22/23 03/22/23 Aspirin EC [Ecotrin Low Dose] 81 mg PO DAILY 03/22/23 03/22/23 Atorvastatin [Lipitor] 20 mg PO HS 03/22/23 03/22/23 Biotin [Biotin Disolve] 10,000 mcg PO DAILY 03/22/23 03/22/23 Cholecalciferol [Vitamin D3 (25 25 mcg PO DAILY 03/22/23 03/22/23 Mcg = 1000 Iu)] Exenatide Microspheres [Bydureon 2 mg SQ MO 03/22/23 03/22/23 Bcise Auto-Injector] Famotidine [Pepcid] 20 mg PO BID PRN 03/22/23 03/22/23 Ibuprofen [Motrin Ib] 200 - 400 mg PO Q8H PRN 03/22/23 03/22/23 Meclizine [Antivert] 25 mg PO DAILY 03/22/23 03/22/23 Methyl Salicylate/Menth/Camph 1 patch TRANSDERM DAILY PRN 03/22/23 03/22/23 [Salonpas 3.1%-6.0%-10.0% Patch] Sertraline [Zoloft] 25 mg PO DAILY 03/22/23 03/22/23 amLODIPine [Norvasc] 10 mg PO DAILY 03/22/23 03/22/23 lisinopriL [Zestril] 20 mg PO DAILY 03/22/23 03/22/23 metFORMIN HCL [Glucophage] 500 mg PO BID 03/22/23 03/22/23 Allergies Allergy/AdvReac Type Severity Reaction Status Date / Time No Known Allergies Allergy Verified 02/22/24 19:38 Review of Systems ROS Statement: Those systems with pertinent positive or pertinent negative responses have been documented in the HPI. ROS Other: All systems not noted in ROS Statement are negative. Past Medical History Past Medical History: Diabetes Mellitus, Hyperlipidemia, Hypertension Additional Past Medical History / Comment(s): vertigo, chronic pain History of Any Multi-Drug Resistant Organisms: None Reported Past Surgical History: Cholecystectomy, Hysterectomy Past Psychological History: No Psychological Hx Reported Smoking Status: Current every day smoker Past Alcohol Use History: None Reported Past Drug Use History: None Reported General Exam Limitations: no limitations General appearance: alert, in no apparent distress Head exam: Present: atraumatic, normocephalic, normal inspection Eye exam: Present: normal appearance, PERRL, EOMI. Absent: scleral icterus, conjunctival injection, periorbital swelling ENT exam: Present: normal exam, mucous membranes moist Neck exam: Present: normal inspection. Absent: tenderness, meningismus, lymphadenopathy Respiratory exam: Present: normal lung sounds bilaterally. Absent: respiratory distress, wheezes, rales, rhonchi, stridor Cardiovascular Exam: Present: regular rate, normal rhythm, normal heart sounds. Absent: systolic murmur, diastolic murmur, rubs, gallop, clicks GI/Abdominal exam: Present: soft, normal bowel sounds. Absent: distended, tenderness, guarding, rebound, rigid Extremities exam: Present: normal inspection, full ROM, normal capillary refill. Absent: tenderness, pedal edema, joint swelling, calf tenderness Back exam: Present: normal inspection Neurological exam: Present: alert, oriented X3, CN II-XII intact Psychiatric exam: Present: normal affect, normal mood Skin exam: Present: warm, dry, intact, normal color. Absent: rash Course Vital Signs 08/26/24 08/26/24 08/26/24 18:57 21:26 21:47 Temperature 97.5 F L Pulse Rate 83 70 64 Respiratory 20 18 18 Rate Blood Pressure 156/70 132/73 135/59 Blood Pressure [Right Arm] O2 Sat by Pulse 97 96 96 Oximetry 08/26/24 08/26/24 08/26/24 22:00 22:32 22:43 Temperature Pulse Rate 65 Respiratory 14 Rate Blood Pressure 128/53 Blood Pressure 128/53 [Right Arm] O2 Sat by Pulse 94 L 96 95 Oximetry 08/26/24 23:00 Temperature Pulse Rate 58 L Respiratory Rate Blood Pressure 136/56 Blood Pressure [Right Arm] O2 Sat by Pulse 97 Oximetry Medical Decision Making - Medical Decision Making Was pt. sent in by a medical professional or institution (, [facility], [facility] [facility], urgent care, hospital, or prison...) When possible be specific @ -No Did you speak to anyone other than the patient for history (EMS, parent, family, police, friend...)? What history was obtained from this source @ -No Did you review nursing and triage notes (agree or disagree)? Why? @ -I reviewed and agree with nursing and triage notes Were old charts reviewed (outside hosp., previous admission, EMS record, old EKG, old radiological studies, urgent care reports/EKG's, prison records)? Report findings @ -No old charts were reviewed Differential Diagnosis (chest pain, altered mental status, abdominal pain women, abdominal pain men, vaginal bleeding, weakness, fever, dyspnea, syncope, headache, dizziness, GI bleed, back pain, seizure, CVA, palpatations, mental health, musculoskeletal)? @ -Differential Dizziness: Benign paroxysmal positional Vertigo, Meniere's disease, otitis media, acoustic neuroma, vertebrobasilar insufficiency, cerebellar stroke, encephalitis, hypovolemic, arrhythmia, coronary artery syndrome, anemia, this is not meant to be an all-inclusive list EKG interpreted by me (3pts min.). @ -EKG at sinus rhythm rate 72, OH 152, QRS 102, QT/QTc [id number] X-rays interpreted by me (1pt min.). @ -Chest x-ray shows chronic changes without evidence for acute process CT interpreted by me (1pt min.). @ -None done U/S interpreted by me (1pt. min.). @ -None done What testing was considered but not performed or refused? (CT, X-rays, U/S, labs)? Why? @ -None What meds were considered but not given or refused? Why? @ -None Did you discuss the management of the patient with other professionals (professionals i.e. , [facility], [employer]ATE G[employer]GER, lab, RT, psych nurse, healthcare social worker, dumpling machine operator, teacher, systems support officer, porter sample case)? Give summary @ -Case discussed with Herminio Barlow with [facility] was accepting of the admission Was smoking cessation discussed for >3mins.? @ -No Was critical care preformed (if so, how long)? @ -No Were there social determinants of health that impacted care today? How? (Homelessness, low income, unemployed, alcoholism, drug addiction, transportation, low edu. Level, literacy, decrease access to med. care, nursing home, rehab)? @ -No Was there de-escalation of care discussed even if they declined (Discuss DNR or withdrawal of care, Hospice)? DNR status @ -No What co-morbidities impacted this encounter? (DM, HTN, Smoking, COPD, CAD, Cancer, CVA, ARF, Chemo, Hep., AIDS, mental health diagnosis, sleep apnea, morbid obesity)? @ -None Was patient admitted / discharged? Hospital course, mention meds given and route, prescriptions, significant lab abnormalities, going to OR and other pertinent info. @ -Admitted. Patient presented to the emergency department for evaluation of dizziness and chest pressure. She does report a history of vertigo and states that this is her typical vertigo dizziness. She does not currently experience chest pressure with her vertigo. She denies any known cardiac history. Laboratory studies were obtainedThere is no significant leukocytosis, hemoglobin 13.4; coagulation studies unremarkable CMP shows hyperglycemia with a blood gl ucose of 206, negative troponin. Negative for COVID, influenza, RSV. Chest x- ray shows chronic changes without evidence for acute process. CT brain shows no acute process. Patient does endorse that the Antivert and fluids helped with her dizziness but she still has chest pressure. She was administered aspirin. She will be admitted with cardiology consultation. She is understanding agreeable with this plan. Patient stable at time of admission. Case discussed with Dr. Venegas. Undiagnosed new problem with uncertain prognosis? @ -No Drug Therapy requiring intensive monitoring for toxicity (Heparin, Nitro, Insulin, Cardizem)? @ -No Were any procedures done? @ -No Diagnosis/symptom? @ -Chest pain Acute, or Chronic, or Acute on Chronic? @ -Acute Uncomplicated (without systemic symptoms) or Complicated (systemic symptoms)? @ -Uncomplicated Side effects of treatment? @ -No Exacerbation, Progression, or Severe Exacerbation? @ -No Poses a threat to life or bodily function? How? (Chest pain, [place], [place], pneumonia, PE, COPD, DKA, ARF, appy, cholecystitis, CVA, Diverticulitis, Homicidal, Suicidal, threat to staff... and all critical care pts) @ -No - Lab Data Result diagrams: 08/26/24 19:40 08/26/24 19:40 Lab Results 08/26/24 08/26/24 08/26/24 Range/Units 19:40 19:40 19:40 WBC 5.2 (3.8-10.6) k/uL RBC 4.43 (3.80-5.40) m/uL Hgb 13.4 (11.4-16.0) gm/dL Hct 41.6 (34.0-46.0) % MCV 93.8 (80.0-100.0) fL MCH 30.1 (25.0-35.0) pg MCHC 32.1 (31.0-37.0) g/dL RDW 14.1 (11.5-15.5) % Plt Count 196 (150-450) k/uL MPV 7.9 Neutrophils % 69 % Lymphocytes % 20 % Monocytes % 6 % Eosinophils % 2 % Basophils % 1 % Neutrophils # 3.6 (1.3-7.7) k/uL Lymphocytes # 1.0 (1.0-4.8) k/uL Monocytes # 0.3 (0-1.0) k/uL Eosinophils # 0.1 (0-0.7) k/uL Basophils # 0.0 (0-0.2) k/uL PT 9.9 L (10.0-12.5) sec INR 0.9 (<1.2) APTT 22.2 (22.0-30.0) sec Sodium 139 (137-145) mmol/L Potassium 4.0 (3.5-5.1) mmol/L Chloride 102 (98-107) mmol/L Carbon Dioxide 25 (22-30) mmol/L Anion Gap 12 mmol/L BUN 19 H (7-17) mg/dL Creatinine 0.61 (0.52-1.04) mg/dL Est GFR (CKD-EPI)AfAm >90 (>60 ml/min/1.73 sqM) Est GFR (CKD-EPI)NonAf 85 (>60 ml/min/1.73 sqM) Glucose 206 H (74-99) mg/dL Calcium 9.4 (8.4-10.2) mg/dL Magnesium 2.0 (1.6-2.3) mg/dL Total Bilirubin 0.5 (0.2-1.3) mg/dL AST 25 (14-36) U/L ALT 27 (4-34) U/L Alkaline Phosphatase 92 (38-126) U/L Troponin I (0.000-0.034) ng/mL Total Protein 6.9 (6.3-8.2) g/dL Albumin 4.2 (3.5-5.0) g/dL Influenza Type A (PCR) (Not Detectd) Influenza Type B (PCR) (Not Detectd) RSV (PCR) (Not Detectd) SARS-CoV-2 (PCR) (Not Detectd) 08/26/24 08/26/24 Range/Units 19:40 19:40 WBC (3.8-10.6) k/uL RBC (3.80-5.40) m/uL Hgb (11.4-16.0) gm/dL Hct (34.0-46.0) % MCV (80.0-100.0) fL MCH (25.0-35.0) pg MCHC (31.0-37.0) g/dL RDW (11.5-15.5) % Plt Count (150-450) k/uL MPV Neutrophils % % Lymphocytes % % Monocytes % % Eosinophils % % Basophils % % Neutrophils # (1.3-7.7) k/uL Lymphocytes # (1.0-4.8) k/uL Monocytes # (0-1.0) k/uL Eosinophils # (0-0.7) k/uL Basophils # (0-0.2) k/uL PT (10.0-12.5) sec INR (<1.2) APTT (22.0-30.0) sec Sodium (137-145) mmol/L Potassium (3.5-5.1) mmol/L Chloride (98-107) mmol/L Carbon Dioxide (22-30) mmol/L Anion Gap mmol/L BUN (7-17) mg/dL Creatinine (0.52-1.04) mg/dL Est GFR (CKD-EPI)AfAm (>60 ml/min/1.73 sqM) Est GFR (CKD-EPI)NonAf (>60 ml/min/1.73 sqM) Glucose (74-99) mg/dL Calcium (8.4-10.2) mg/dL Magnesium (1.6-2.3) mg/dL Total Bilirubin (0.2-1.3) mg/dL AST (14-36) U/L ALT (4-34) U/L Alkaline Phosphatase (38-126) U/L Troponin I <0.012 (0.000-0.034) ng/mL Total Protein (6.3-8.2) g/dL Albumin (3.5-5.0) g/dL Influenza Type A (PCR) Not Detected (Not Detectd) Influenza Type B (PCR) Not Detected (Not Detectd) RSV (PCR) Not Detected (Not Detectd) SARS-CoV-2 (PCR) Not Detected (Not Detectd) Disposition Clinical Impression: Chest pain Disposition: ADMITTED IP TO THIS HOSP Condition: Stable Is patient prescribed a controlled substance at d/c from ED?: No
--- NOTE | 2024-08-26 19:51 | XR ---
EXAMINATION TYPE: XR chest 2V DATE OF EXAM: 08/26/2024 CLINICAL INDICATION: Female, 83 years old with history of Chest Pain, TECHNIQUE: Frontal and lateral views of the chest are obtained. COMPARISON: Chest x-ray March 22, 2023 FINDINGS: There is some mild chronic parenchymal changes bilaterally without suspicious focal air sp sinan opacity, pleural effusion, or pneumothorax seen. The cardiac silhouette size is stable and mildl y enlarged with atherosclerotic change aortic knob redemonstrated. Bridging osteophytes in the thorac ic spine are again seen. IMPRESSION: Chronic changes and mild cardiomegaly without acute pulmonary process. [facility], , 08/26/2024 7:49 PM
[2024-08-26 19:52] LABS: Basophils % (A) 1 %; Eosinophils # (A) 0.1 k/uL (0-0.7); Eosinophils % (A) 2 %; HCT 41.6 % (34.0-46.0); HGB 13.4 gm/dL (11.4-16.0); Lymphocytes % (A) 20 %; MCH 30.1 pg (25.0-35.0); MCHC 32.1 g/dL (31.0-37.0); MCV 93.8 fL (80.0-100.0); Mean Platelet Volume 7.9; Monocytes # (A) 0.3 k/uL (0-1.0); Monocytes % (A) 6 %; Neutrophils # (A) 3.6 k/uL (1.3-7.7); Neutrophils % (A) 69 %; Platelet Count 196 k/uL (150-450); RBC 4.43 m/uL (3.80-5.40); RDW 14.1 % (11.5-15.5); WBC 5.2 k/uL (3.8-10.6)
[2024-08-26] MEDS: SODIUM CHLORIDE 0.9% 500 ML 500 ML IV STA (19:52)
--- NOTE | 2024-08-26 19:54 | CT ---
EXAMINATION TYPE: CT brain wo con DATE OF EXAM: 08/26/2024 COMPARISON: CT brain March 22, 2023 CLINICAL INDICATION: Female, 83 years old with history of dizziness, dizziness TECHNIQUE: CT scan of the head is performed without contrast. CT DLP: 1152.9 mGycm. Automated Exposure Control for Dose Reduction was Utilized. FINDINGS: There is no acute intracranial hemorrhage or midline shift identified. There is mild to m oderate diffuse ventricular and sulcal prominence redemonstrated. There is mild to moderate low-atte nuation in the periventricular white matter redemonstrated. Bilateral aphakia is redemonstrated. Depe ndent fluid left maxillary sinus again seen. There is suspected new 8 mm mucous retention cyst or p olyp left ethmoid sinus axial image 11. Nasal septum remains deviated to right of midline. No suspici ous opacification of the mastoid air cells. IMPRESSION: No acute intracranial hemorrhage or midline shift. No significant change from most recen t prior CT. [facility], , 08/26/2024 7:52 PM
[2024-08-26 20:09] LABS: ALT 27 U/L (4-34); AST 25 U/L (14-36); African American GFR (CKD) >90 (>60 ml/min/1.73 sqM); Albumin 4.2 g/dL (3.5-5.0); Alkaline Phosphatase 92 U/L (38-126); Anion Gap 12 mmol/L; Blood Urea Nitrogen 19 mg/dL (7-17); Calcium 9.4 mg/dL (8.4-10.2); Carbon Dioxide 25 mmol/L (22-30); Chloride 102 mmol/L (98-107); Glucose 206 mg/dL (74-99); Non-African American GFR(CKD) 85 (>60 ml/min/1.73 sqM); Sodium 139 mmol/L (137-145); Total Bilirubin 0.5 mg/dL (0.2-1.3); Total Protein 6.9 g/dL (6.3-8.2)
[2024-08-26 20:12] LABS: INR 0.9 (<1.2); Partial Thromboplastin Time 22.2 sec (22.0-30.0); Prothrombin Time 9.9 sec (10.0-12.5)
[2024-08-26 20:26] LABS: Influenza A Not Detected (Not Detectd); Influenza B Not Detected (Not Detectd); RSV Not Detected (Not Detectd)
[2024-08-26] MEDS: ASPIRIN 81 MG PO STA (20:34)
[2024-08-26] MEDS: MECLIZINE 12.5 MG TAB PO STA (20:34)
[2024-08-26] MEDS ORDERED: IBUPROFEN 400 MG TAB PO PRN (21:22)
[2024-08-26] MEDS ORDERED: NALOXONE 0.4 MG/ML 1 ML VIAL IV PRN (21:22)
[2024-08-26] MEDS ORDERED: ACETAMINOPHEN TAB 325 MG TAB PO PRN (21:22)
[2024-08-26] MEDS: MORPHINE SULFATE 2 MG/ML SYRINGE IVP STA (21:27)
[2024-08-26] MEDS: MORPHINE SULFATE 2 MG/ML SYRINGE IV PRN (23:48)
[2024-08-27] MEDS ORDERED: MECLIZINE 25 MG TAB PO PRN (09:40)
[2024-08-27] MEDS ORDERED: DEXTROSE 50% SYRINGE 50 ML IVP PRN ×2 (10:19)
[2024-08-27] MEDS: ASPIRIN 81 MG PO SCH (10:44)
[2024-08-27] MEDS: ENOXAPARIN 40 MG/0.4 ML SYRINGE SQ SCH (10:44)
--- NOTE | 2024-08-27 11:00 | US ---
EXAMINATION TYPE: US carotid duplex BILAT DATE OF EXAM: 08/27/2024 COMPARISON: NONE CLINICAL INDICATION: Female, 83 years old with history of Dizziness, rule out stenosis; Hx Stroke, HT N, DM, and is a smoker. New onset headaches TECHNIQUE: Grayscale, color Doppler and spectral Doppler evaluation of the bilateral carotid systems and vertebral arteries. Indirect Doppler criteria was utilized. FINDINGS: EXAM MEASUREMENTS: RIGHT: Peak Systolic Velocity (PSV) cm/sec ----- Right CCA: 74 ----- Right ICA: 103 ----- Right ECA: 267 ICA/CCA ratio: 1.4 RIGHT: End Diastole cm/sec ----- Right CCA: 10 ----- Right ICA: 18 ----- Right ECA: 0 LEFT: Peak Systolic Velocity (PSV) cm/sec ----- Left CCA: 106 ----- Left ICA: 170 ----- Left ECA: 203 ICA/CCA ratio: 1.6 LEFT: End Diastole cm/sec ----- Left CCA: 19 ----- Left ICA: 41 ----- Left ECA: 0 VERTEBRALS (direction of flow): Right Vertebral: Antegrade Left Vertebral: Antegrade Rhythm: Normal SLIDE FASTENERS INSPECTOR NOTES: Calcified plaque seen bilateral CCAs, CCA bulbs, and extending into ICAs. Elevated velocities within the bilateral ECAs and left ICA, and questionable Reversal of flow within the righ t ECA. No intimal thickening seen. IMPRESSION: 1. Moderate atherosclerotic changes at the bilateral carotid bifurcations. Measurements do not sugges t a hemodynamically significant internal carotid artery stenosis on either side. 2. Bilateral ECA velocity elevation suggests severe proximal ECA stenoses. Criteria for Assigning % of Stenosis / Diameter reduction (Estimation based on the indirect measurements of the internal carotid artery velocities (ICA PSV). 1. Normal (no stenosis)=ICA PSV < 180 cm/s: ratio < 2.0: ICA EDV<40 cm/s. 2. Less than 50% stenosis=ICA PSV < 180 cm/s: ratio < 2.0: ICA EDV<40 cm/s. 3. 50 to 69% stenosis=ICA PSV of 180 to 230 cm/s: ration 2.0 ? 4.0: ICA EDV 40-100 cm/s. PSV 125-180 cm/sec and ICA/CCA PSV Ratio ? 2.0 is also consistent with 50-69% stenosis 4. Greater than 70% stenosis to near occlusion= ICA PSV > 230 cm/s: ratio > 4.0: ICA EDV > 100 cm/s. 5. Near occlusion= ICA PSV velocities may be low or undetectable: variable ratio and ICA EDV. 6. Total occlusion=unable to detect flow. [facility], , 08/27/2024 10:57 AM
[2024-08-27] MEDS: SERTRALINE 25 MG TAB PO SCH (11:17)
[2024-08-27] MEDS: FLUTICASONE NASAL 50MCG/SPRAY 16GM BTL EA NOSTRIL SCH (11:17)
[2024-08-27 11:21] LABS: Glucose,Whole Blood 101 mg/dL (70-110)
[2024-08-27] MEDS: INSULIN LISPRO (HumaLOG) 100 UNIT/ML 10 mL VL SQ SCH (11:22)
[2024-08-27] MEDS: SERTRALINE 50 MG TAB PO SCH (11:25)
--- NOTE | 2024-08-27 12:39 | P.CRDCN ---
History of Present Illness Consult date: 08/27/24 Consult reason: chest pain History of present illness: This is an 83-year-old female with no previous cardiac history and does not follow with a resolution rep. She has a past medical history of hypertension, hyperlipidemia, diabetes. We have been asked to evaluate the patient for chest pain. Patient states that she came into the hospital because of dizziness. She was concerned because she was taking different medications and thought it could be related to that. Dizziness started on Saturday. She states she was taken off metformin and she was recently started on Crestor. She did try meclizine at home and also here in the hospital without any improvement. She feels like she cannot walk in a straight line. She also complains of a bad earache on the right side. Patient states she has had some chest pain musculoskeletal type of pain. No radiation of the pain. No shortness of breath. Orthostatic vital signs are negative. Blood pressure 130/77, heart rate in the 60s and 70s, pulse ox 97% on room air. Patient is seen today in the emergency center waiting for a bed on the observation unit. -EKG: Sinus rhythm with no acute ST-T wave changes. -Chest x-ray: Chronic changes and mild cardiomegaly. -CT brain no acute findings -Laboratory studies: CBC within normal limits. Troponin negative x 3. Cepheid viral panel not detected. -Home cardiac medications: Amlodipine 10 mg at bedtime, aspirin 81 mg daily, lisinopril 20 mg at bedtime, Crestor 10 mg at bedtime. -Carotid duplex revealed moderate atherosclerotic changes of the bilateral carotid bifurcations. Measurements do not suggest hemodynamically significant internal carotid artery stenosis on either side. Bilateral ECA velocity elevation suggest severe proximal ECA stenosis. Review Of Systems: At the time of my exam: CONSTITUTIONAL: Denies fever or chills. Reports dizziness. HEENT: Denies blurred vision, vision changes, or eye pain. Denies hemoptysis CARDIOVASCULAR: Denies chest pain. Denies orthopnea. Denies PND. Denies palpitations RESPIRATORY: Denies shortness of breath. GASTROINTESTINAL: Denies abdominal pain. Denies nausea or vomiting. HEMATOLOGIC: Denies bleeding disorders. GENITOURINARY: Denies any blood in urine. SKIN: Denies puritis. Denies rash. Physical examination: Gen: This is an 83-year-old female in no acute distress VS: reviewed HEENT: Head is atraumatic, normocephalic. Pupils equal, round. Sclerae is anicteric. NECK: Supple. No JVD. LUNGS: Clear to auscultation. No wheezes or rhonchi. No intercostal retractions. HEART: Regular rate and rhythm. No murmur. ABDOMEN: Soft No tenderness. EXTREMITIES: No pedal edema. No calf tenderness. NEUROLOGICAL: Patient is awake, alert and oriented x3. Assessment: Dizziness Musculoskeletal chest pain Acute coronary syndrome ruled out Hypertension Hyperlipidemia Diabetes Plan: Continue patient's home cardiac medications Increase rosuvastatin to 20 mg at bedtime No further cardiac workup at this time Patient is cleared for discharge from cardiology and will follow-up in the office with Dr. Miller in 1 week reports dizziness. Thank you kindly for this consultation. Nurse practitioner note has been reviewed, I agree with documented findings and plan of care. Patient was seen and examined. Past Medical History Past Medical History: Diabetes Mellitus, Hyperlipidemia, Hypertension Additional Past Medical History / Comment(s): vertigo, chronic pain History of Any Multi-Drug Resistant Organisms: None Reported Past Surgical History: Cholecystectomy, Hysterectomy Past Psychological History: No Psychological Hx Reported Smoking Status: Current every day smoker Past Alcohol Use History: None Reported Past Drug Use History: None Reported Medications and Allergies Home Medications Medication Instructions Recorded Confirmed Type Aspirin EC [Ecotrin Low Dose] 81 mg PO DAILY 03/22/23 08/27/24 History Biotin [Biotin Disolve] 10,000 mcg PO DAILY 03/22/23 08/27/24 History Cholecalciferol [Vitamin D3 (25 25 mcg PO DAILY 03/22/23 08/27/24 History Mcg = 1000 Iu)] Exenatide Microspheres [Bydureon 2 mg SQ WE 03/22/23 08/27/24 History Bcise Auto-Injector] Ibuprofen [Motrin Ib] 200 - 400 mg PO Q8H PRN 03/22/23 08/27/24 History Meclizine [Antivert] 25 mg PO DAILY PRN 03/22/23 08/27/24 History Sertraline [Zoloft] 25 mg PO DAILY@1200 03/22/23 08/27/24 History amLODIPine [Norvasc] 10 mg PO HS 03/22/23 08/27/24 History lisinopriL [Zestril] 20 mg PO HS 03/22/23 08/27/24 History Rosuvastatin [Crestor] 10 mg PO HS 08/27/24 08/27/24 History Rosuvastatin [Crestor] 20 mg PO HS #30 tablet 08/27/24 Rx Sertraline [Zoloft] 50 mg PO DAILY@1200 08/27/24 08/27/24 History clonazePAM [KlonoPIN] 0.5 mg PO BID 08/27/24 08/27/24 History Allergies Allergy/AdvReac Type Severity Reaction Status Date / Time No Known Allergies Allergy Verified 08/27/24 07:32 Physical Exam Vitals: Vital Signs Temp Pulse Resp BP BP Pulse Ox 08/27/24 06:00 98 F 71 18 123/54 95 08/27/24 05:00 60 18 123/64 95 08/27/24 03:07 70 126/71 97 08/26/24 23:43 97.6 F 63 18 134/60 96 08/26/24 23:00 58 L 136/56 97 08/26/24 22:43 14 128/53 95 08/26/24 22:32 96 08/26/24 22:00 65 128/53 94 L 08/26/24 21:47 97.5 F L 64 18 135/59 96 08/26/24 21:26 70 18 132/73 96 08/26/24 18:57 83 20 156/70 97 Intake and Output 08/26/24 08/27/24 08/27/24 22:59 06:59 14:59 Other: Weight 65.771 kg Results 08/26/24 19:40 08/26/24 19:40 Cardiac Enzymes 08/26/24 08/26/24 08/26/24 Range/Units 19:40 19:40 23:42 AST 25 (14-36) U/L Troponin I <0.012 <0.012 (0.000-0.034) ng/mL 08/27/24 Range/Units 03:15 AST (14-36) U/L Troponin I <0.012 (0.000-0.034) ng/mL Coagulation 08/26/24 Range/Units 19:40 PT 9.9 L (10.0-12.5) sec APTT 22.2 (22.0-30.0) sec CBC 08/26/24 Range/Units 19:40 WBC 5.2 (3.8-10.6) k/uL RBC 4.43 (3.80-5.40) m/uL Hgb 13.4 (11.4-16.0) gm/dL Hct 41.6 (34.0-46.0) % Plt Count 196 (150-450) k/uL Comprehensive Metabolic Panel 08/26/24 Range/Units 19:40 Sodium 139 (137-145) mmol/L Potassium 4.0 (3.5-5.1) mmol/L Chloride 102 (98-107) mmol/L Carbon Dioxide 25 (22-30) mmol/L BUN 19 H (7-17) mg/dL Creatinine 0.61 (0.52-1.04) mg/dL Glucose 206 H (74-99) mg/dL Calcium 9.4 (8.4-10.2) mg/dL AST 25 (14-36) U/L ALT 27 (4-34) U/L Alkaline Phosphatase 92 (38-126) U/L Total Protein 6.9 (6.3-8.2) g/dL Albumin 4.2 (3.5-5.0) g/dL Current Medications Generic Name Dose Route Start Last Admin Trade Name Freq PRN Reason Stop Dose Admin Acetaminophen 650 mg 08/26/24 21:22 Acetaminophen Tab 325 Mg Tab PO Q6HR PRN Mild Pain or Fever > 100.5 Ibuprofen 400 mg 08/26/24 21:22 Ibuprofen 400 Mg Tab PO Q6HR PRN Moderate Pain or Fever > 100.5 Morphine Sulfate 2 mg 08/26/24 21:22 08/26/24 23:48 Morphine Sulfate 2 Mg/Ml Syringe IV 2 mg Q4HR PRN Administration Severe Pain (Scale 7 to 10) Naloxone HCl 0.2 mg 08/26/24 21:22 Naloxone 0.4 Mg/Ml 1 Ml Vial IV Q2M PRN Opioid Reversal Intake and Output 08/26/24 08/27/24 08/27/24 22:59 06:59 14:59 Other: Weight 65.771 kg 08/26/24 19:40 08/26/24 19:40
[2024-08-27 12:42] VITALS: RESP 16; TEMP 97.7
[2024-08-27 14:03] VITALS: BP 118/51; PULSE 63
--- NOTE | 2024-08-27 14:51 | P.DS ---
Providers Date of admission: 08/26/24 21:23 Attending physician: Lisbeth Benavides Consults: 08/26/24 21:22 Consult Physician Routine Consulting Provider: Benson Seth Consult Reason/Comments: chest pain Do you want consulting provider notified?: Yes, Notify in am Primary care physician: Chris Alexander Hospital Course: Discharge Diagnosis: #Dizziness likely secondary to labyrinthitis or eustachian tube disorder #Chest pressure, ACS has been ruled out #Musculoskeletal chest pain, ACS been ruled out Hospital Course: Patient is a 83-year-old female with history of chronic sinusitis, vertigo, type 2 diabetes mellitus, hyperlipidemia and hypertension presented to the ER with a complaint of feeling dizzy from last 7 days. It is worse when she gets up from sitting position and walk around. She stated that she is unable to walk in a straight line but denies any vertigo. She also reports recent upper respiratory tract infection, right ear pain, tinnitus and right-sided headache. She has also been experiencing mild nasal drainage. Otherwise, patient denies any nausea, vomiting, hearing loss, shortness of breath,, diarrhea, constipation, loss of consciousness or fall or blurry vision. Patient has had experienced episodes of vertigo in the past which would typically resolve after taking meclizine but not at this time. Patient also been experiencing chest pressure, which she describes as someone is sitting on her chest, from last 2 days which is substernal and is nonradiating. It is not associated with any nausea and or vomiting. Patient denies any previous history of CAD. At time of the interview, chest pressure has resolved. However she continues to feel dizzy. Patient is a chronic smoker, smokes half pack a day for last 30 years. No alcohol or illicit drug use. Patient lives alone. CT brain shows no acute intracranial process, however does show left maxillary sinus fluid and a new 8 mm cyst or polyp in the left ethmoid sinus. Nasal septum remains deviated to the right of midline. Chest x-ray shows chronic changes and mild cardiomegaly without acute pulmonary process. Initial lab work shows WBC 5.2, hemoglobin 13.4, platelet 196, sodium 139, potassium 4.0, chloride 102, BUN 19, creatinine 0.61, glucose 206, calcium 9.4, magnesium 2.0, troponin with 3 readings of less than 0.012. Viral serology negative for influenza type A, B, RSV and COVID-19. EKG shows sinus rhythm with supraventricular premature complexes, ventricular rate 64 bpm, [place] interval 191 ms, QRS duration of 86 ms, QTc 490 ms. Poor R wave progression noted. Vital signs with Tmax of 97.5 F, Heart rate 71, respiratory rate 18, blood pressure 133/54, oxygen saturation 95% on room air Cardiology was consulted. Acute coronary syndrome was ruled out based on atypical presentation of the chest pain along with negative troponin and EKG findings. Patient to follow-up with cardiology within 1 week as an outpatient. Carotid duplex revealed moderate atherosclerotic changes of the bilateral carotid bifurcations. Measurements do not suggest hemodynamically significant internal carotid artery stenosis on either side. Bilateral ECA velocity elevation suggest severe proximal ECA stenosis. Patient is advised to follow-up with her PCP as well as advised to see ENT specialist for her chronic sinusitis. Patient otherwise hemodynamically stable and medically optimized for discharge. Patient stated that she is independent in her ADLs and she has her friend staying with her over the weekend to take care of her. Patient to continue with aspirin and rosuvastatin. Discharge disposition: Home with self-care Vital signs reviewed General: non toxic, no distress, appears at stated age, obese Derm: no unusual rashes/lesions, warm Head: atraumatic, normocephalic, symmetric, left frontal and ethmoid sinus tenderness upon palpation Eyes: EOMI, no lid lag, anicteric sclera, pupils equal round reactive to light ENT: Nose and ears atraumatic, right nasal septum deviation Neck: No cervical lymphadenopathy, trachea midline, supple Mouth: no lip lesion, mucus membranes moist Cardiovascular: S1S2 reg, no murmur, positive dorsalis pedis pulse bilateral, no edema Lungs: CTA bilateral, no rhonchi, no rales, no accessory muscle use Abdominal: soft, nontender to palpation, no guarding Ext: muscle strength 5 out of 5 in all 4 extremities grossly, no gross muscle atrophy, no contractures, Neuro: CN II-XI grossly intact, no gross focal neuro deficits Psych: Alert, oriented, appropriate affect Dictation was produced using [employer] dictation software. Please excuse any grammatical, word or spelling errors. Attestation: I have personally seen and examined the patient with Resident, reviewed the documentation and participated and agree with the assessment and plan as written. Alon Pro MD Patient Condition at Discharge: Stable Plan - Discharge Summary New Discharge Prescriptions: New Rosuvastatin [Crestor] 20 mg PO HS #30 tablet Fluticasone Nasal [place] [Flonase Nasal [place]] 2 spray EA NOSTRIL DAILY #1 ml Continue amLODIPine [Norvasc] 10 mg PO HS Aspirin EC [Ecotrin Low Dose] 81 mg PO DAILY Biotin [Biotin Disolve] 10,000 mcg PO DAILY Sertraline [Zoloft] 50 mg PO DAILY@1200 clonazePAM [KlonoPIN] 0.5 mg PO BID Cholecalciferol [Vitamin D3 (25 Mcg = 1000 Iu)] 25 mcg PO DAILY Ibuprofen [Motrin Ib] 200 - 400 mg PO Q8H PRN PRN Reason: Pain lisinopriL [Zestril] 20 mg PO HS Meclizine [Antivert] 25 mg PO DAILY PRN PRN Reason: Vertigo Sertraline [Zoloft] 25 mg PO DAILY@1200 Discontinued Exenatide Microspheres [Bydureon Bcise Auto-Injector] 2 mg SQ WE Rosuvastatin [Crestor] 10 mg PO HS Discharge Medication List Aspirin EC [Ecotrin Low Dose] 81 mg PO DAILY 03/22/23 [History] Biotin [Biotin Disolve] 10,000 mcg PO DAILY 03/22/23 [History] Cholecalciferol [Vitamin D3 (25 Mcg = 1000 Iu)] 25 mcg PO DAILY 03/22/23 [History] Ibuprofen [Motrin Ib] 200 - 400 mg PO Q8H PRN 03/22/23 [History] Meclizine [Antivert] 25 mg PO DAILY PRN 03/22/23 [History] Sertraline [Zoloft] 25 mg PO DAILY@1200 03/22/23 [History] amLODIPine [Norvasc] 10 mg PO HS 03/22/23 [History] lisinopriL [Zestril] 20 mg PO HS 03/22/23 [History] Fluticasone Nasal [place] [Flonase Nasal [place]] 2 spray EA NOSTRIL DAILY #1 ml 08/27/24 [Rx] Rosuvastatin [Crestor] 20 mg PO HS #30 tablet 08/27/24 [Rx] Sertraline [Zoloft] 50 mg PO DAILY@1200 08/27/24 [History] clonazePAM [KlonoPIN] 0.5 mg PO BID 08/27/24 [History] Follow up Appointment(s)/Referral(s): Hans Miller MD [STAFF PHYSICIAN] - 1 Week Chris Alexander MD [Primary Care Provider] - 1-2 days Patient Instructions/Handouts: Labyrinthitis (ED), Dizziness (ED) Activity/Diet/Wound Care/Special Instructions: Please follow-up with your PCP and shank carrier within 1 to 2 weeks. Discharge Disposition: HOME SELF-CARE
--- NOTE | 2024-08-27 16:50 | CA ---
Transthoracic Echo Report Name: Ana Maria Davis Age: 83 Gender: F : 1940 Exam Date: 08/27/2024 08:35 Exam Location: [facility] Ht (in): 57 Wt (lb): 145 Ordering Physician: Mago Cabrales Attending/Referring Phys: [employer] Mechanic Ina Willis RDCS Procedure CPT: Indications: Chest Pain Cardiac Hx: Technical Quality: Good Contrast 1: Total Dose (mL): Contrast 2: Total Dose (mL): MEASUREMENTS (Male / Female) Normal Values 2D ECHO LV Diastolic Diameter PLAX 4.5 cm 4.2 - 5.9 / 3.9 - 5.3 cm LV Systolic Diameter PLAX 3.6 cm IVS Diastolic Thickness 1.2 cm 0.6 - 1.0 / 0.6 - 0.9 cm LVPW Diastolic Thickness 1.2 cm 0.6 - 1.0 / 0.6 - 0.9 cm LV Relative Wall Thickness 0.5 RV Internal Dim ED PLAX 2.5 cm LA Systolic Diameter LX 3.1 cm 3.0 - 4.0 / 2.7 - 3.8 cm LV Diastolic Volume MOD 4C 51.7 cm??? LV Systolic Volume MOD 4C 25.4 cm??? LV Ejection Fraction MOD 4C 50.8 % LV Cardiac Index MOD 4C 983.2 cm???/min???m??? LV Diastolic Length 4C 6.8 cm LV Systolic Length 4C 5.4 cm LV Diastolic Volume MOD 2C 84.5 cm??? LV Systolic Volume MOD 2C 41.3 cm??? LV Ejection Fraction MOD 2C 51.2 % LV Cardiac Index MOD 2C 1619.4 cm???/min???m??? LV Diastolic Length 2C 6.5 cm LV Systolic Length 2C 5.4 cm LA Volume 49.4 cm??? 18 - 58 / 22 - 52 cm??? LA Volume Index 29.8 cm???/m??? 16 - 28 cm???/m??? M-MODE Aortic Root Diameter MM 3.0 cm DOPPLER AV Peak Velocity 154.9 cm/s AV Peak Gradient 9.6 mmHg MV Area PHT 2.2 cm??? Mitral E Point Velocity 93.4 cm/s Mitral A Point Velocity 117.1 cm/s Mitral E to A Ratio 0.8 MV Deceleration Time 348.4 ms TR Peak Velocity 268.2 cm/s TR Peak Gradient 28.8 mmHg Right Ventricular Systolic Press 34.0 mmHg FINDINGS Left Ventricle Left ventricular ejection fraction is estimated at 55-60 %. Mildly increased septal wall thickness. Mildly increased posterior wall thickness. Normal left ventricular wall motion. Right Ventricle Normal right ventricular size. Borderline PHTN Right Atrium Normal right atrial size. No right atrial thrombus or mass seen. Left Atrium Mildly increased left atrial volume. No left atrial thrombus or mass present. Mitral Valve Mitral valve thickened. Mild mitral regurgitation. Mitral annular calcification. Aortic Valve Trileaflet aortic valve. No aortic valve stenosis or regurgitation. Tricuspid Valve Structurally normal tricuspid valve. Mild tricuspid regurgitation. Pulmonic Valve Structurally normal pulmonic valve. No pulmonic regurgitation. Pericardium No pericardial effusion. Aorta Aortic annulus normal. CONCLUSIONS Diagnosis: Chest discomfort LVH with preserved systolic function Left atrial enlargement Mitral annular calcification with mild regurgitation Mildly thickened pericardium without effusion Previewed by: Dr. Hans Miller MD (Electronically Signed) Final Date: 27 August 2024 16:49
--- NOTE | 2024-08-27 17:10 | P.HPIM ---
History of Present Illness H&P Date: 08/27/24 Chief Complaint: dizziness, ear pain and chest pressure Patient is a 83-year-old female with history of chronic sinusitis, vertigo, type 2 diabetes mellitus, hyperlipidemia and hypertension presented to the ER with a complaint of feeling dizzy from last 7 days. It is worse when she gets up from sitting position and walk around. She stated that she is unable to walk in a straight line but denies any vertigo. She also reports recent upper respiratory tract infection, right ear pain, tinnitus and right-sided headache. She has also been experiencing mild nasal drainage. Otherwise, patient denies any nausea, vomiting, hearing loss, shortness of breath,, diarrhea, constipation, loss of consciousness or fall or blurry vision. Patient has had experienced episodes of vertigo in the past which would typically resolve after taking meclizine but not at this time. Patient also been experiencing chest pressure, which she describes as someone is sitting on her chest, from last 2 days which is substernal and is nonradiating. It is not associated with any nausea and or vomiting. Patient denies any previous history of CAD. At time of the interview, chest pressure has resolved. However she continues to feel dizzy. Patient is a chronic smoker, smokes half pack a day for last 30 years. No alcohol or illicit drug use. Patient lives alone. CT brain shows no acute intracranial process, however does show left maxillary sinus fluid and a new 8 mm cyst or polyp in the left ethmoid sinus. Nasal septum remains deviated to the right of midline. Chest x-ray shows chronic changes and mild cardiomegaly without acute pulmonary process. Initial lab work shows WBC 5.2, hemoglobin 13.4, platelet 196, sodium 139, potassium 4.0, chloride 102, BUN 19, creatinine 0.61, glucose 206, calcium 9.4, magnesium 2.0, troponin with 3 readings of less than 0.012. Viral serology negative for influenza type A, B, RSV and COVID-19. EKG shows sinus rhythm with supraventricular premature complexes, ventricular rate 64 bpm, [place] interval 191 ms, QRS duration of 86 ms, QTc 490 ms. Poor R wave progression noted. Vital signs with Tmax of 97.5 F, Heart rate 71, respiratory rate 18, blood pressure 133/54, oxygen saturation 95% on room air Review of systems: Pertinent positives and negatives as discussed in HPI, a complete review of systems was performed and all other systems are negative. Social history: As above in HPI Physical examination: Vital signs reviewed General: non toxic, no distress, appears at stated age, obese Derm: no unusual rashes/lesions, warm Head: atraumatic, normocephalic, symmetric, left frontal and ethmoid sinus tenderness upon palpation Eyes: EOMI, no lid lag, anicteric sclera, pupils equal round reactive to light ENT: Nose and ears atraumatic, right nasal septum deviation Neck: No cervical lymphadenopathy, trachea midline, supple Mouth: no lip lesion, mucus membranes moist Cardiovascular: S1S2 reg, no murmur, positive dorsalis pedis pulse bilateral, no edema Lungs: CTA bilateral, no rhonchi, no rales, no accessory muscle use Abdominal: soft, nontender to palpation, no guarding Ext: muscle strength 5 out of 5 in all 4 extremities grossly, no gross muscle atrophy, no contractures, Neuro: CN II-XI grossly intact, no gross focal neuro deficits Psych: Alert, oriented, appropriate affect Assessment/Plan: This is a Patient is a 83-year-old female with history of chronic sinusitis, vertigo, type 2 diabetes mellitus, hyperlipidemia and hypertension presented to the ER with a complaint of feeling dizzy from last 7 days and chest pressure x 2 days. . Case was discussed with the Emergency Room provider and decision was made to admit the patient for dizziness and chest pressure. Labs and images: CT brain shows no acute intracranial process, however does show left maxillary sinus fluid and a new 8 mm cyst or polyp in the left ethmoid sinus. Nasal septum remains deviated to the right of midline. Chest x-ray shows chronic changes and mild cardiomegaly without acute pulmonary process. Initial lab work shows WBC 5.2, hemoglobin 13.4, platelet 196, sodium 139, potassium 4.0, chloride 102, BUN 19, creatinine 0.61, glucose 206, calcium 9.4, magnesium 2.0, troponin with 3 readings of less than 0.012. Viral serology negative for influenza type A, B, RSV and COVID-19. EKG shows sinus rhythm with supraventricular premature complexes, ventricular rate 64 bpm, [place] interval 191 ms, QRS duration of 86 ms, QTc 490 ms. Poor R wave progression noted. Vital signs with Tmax of 97.5 F, Heart rate 71, respiratory rate 18, blood pr essure 133/54, oxygen saturation 95% on room air Active problems: #Dizziness #History of chronic sinusitis Differential diagnoses include Mnire disease, BPV, labyrinthitis and eustachian tube disorder, orthostatic hypotension Patient is given meclizine 25 mg p.o. once stat in the ED Resume her home meclizine 25 mg p.o. daily as needed Order orthostatic vitals CT brain findings as above Consider outpatient ENT evaluation Order Flonase nasal spray Fall precautions CT angio of the head and neck on 07/01/2022 showed 60% stenosis of the left internal carotid artery Order carotid duplex ultrasound bilaterally #Chest pressure, rule out ACS High-dose aspirin in ED Continue with low-dose aspirin daily Consult cardiology Order echocardiogram Continue with cardiac telemetry Cardiac troponin I trend is negative Oxygen therapy as needed IV morphine 2 mg every 4 hours as needed #Hyperglycemia in the context of type 2 diabetes mellitus Accu-Cheks and sliding scale insulin Check HbA1c Monitor for hypoglycemia Chronic: Hypertension, hyperlipidemia, anxiety Hold lisinopril and amlodipine Resume rosuvastatin 10 mg p.o. at bedtime Resume sertraline 25 mg p.o. daily and 50 mg p.o. daily DVT prophylaxis: Lovenox 40 mg subcu daily GI prophylaxis: None F: As needed E: As needed N: Consistent carbohydrate diet A: Ambulatory baseline The patient is admitted with an anticipated less than than 2 midnight stay for evaluation of dizziness and chest pressure CODE STATUS: Full code Discussed with: Patient Anticipated discharge place: Pending clinical course Dictation was produced using [employer] dictation software. Please excuse any grammatical, word or spelling errors. Attestation: I have personally seen and examined the patient with Resident, reviewed the documentation and participated and agree with the assessment and plan as written. Alon Pro MD Past Medical History Past Medical History: Diabetes Mellitus, Hyperlipidemia, Hypertension Additional Past Medical History / Comment(s): vertigo, chronic pain History of Any Multi-Drug Resistant Organisms: None Reported Past Surgical History: Cholecystectomy, Hysterectomy Past Psychological History: No Psychological Hx Reported Smoking Status: Current every day smoker Past Alcohol Use History: None Reported Past Drug Use History: None Reported Medications and Allergies Home Medications Medication Instructions Recorded Confirmed Type Aspirin EC [Ecotrin Low Dose] 81 mg PO DAILY 03/22/23 08/27/24 History Biotin [Biotin Disolve] 10,000 mcg PO DAILY 03/22/23 08/27/24 History Cholecalciferol [Vitamin D3 (25 25 mcg PO DAILY 03/22/23 08/27/24 History Mcg = 1000 Iu)] Ibuprofen [Motrin Ib] 200 - 400 mg PO Q8H PRN 03/22/23 08/27/24 History Meclizine [Antivert] 25 mg PO DAILY PRN 03/22/23 08/27/24 History Sertraline [Zoloft] 25 mg PO DAILY@1200 03/22/23 08/27/24 History amLODIPine [Norvasc] 10 mg PO HS 03/22/23 08/27/24 History lisinopriL [Zestril] 20 mg PO HS 03/22/23 08/27/24 History Fluticasone Nasal [place] [Flonase 2 spray EA NOSTRIL DAILY #1 ml 08/27/24 Rx Nasal [place]] Rosuvastatin [Crestor] 20 mg PO HS #30 tablet 08/27/24 Rx Sertraline [Zoloft] 50 mg PO DAILY@1200 08/27/24 08/27/24 History clonazePAM [KlonoPIN] 0.5 mg PO BID 08/27/24 08/27/24 History Allergies Allergy/AdvReac Type Severity Reaction Status Date / Time No Known Allergies Allergy Verified 08/27/24 07:32 Physical Exam Vitals: Vital Signs Temp Pulse Pulse Pulse Pulse Resp BP 08/27/24 09:55 72 18 130/77 08/27/24 09:49 64 67 60 08/27/24 06:00 98 F 71 18 123/54 08/27/24 05:00 60 18 123/64 08/27/24 03:07 70 126/71 08/26/24 23:43 97.6 F 63 18 134/60 08/26/24 23:00 58 L 136/56 08/26/24 22:43 14 08/26/24 22:32 08/26/24 22:00 65 128/53 08/26/24 21:47 97.5 F L 64 18 135/59 08/26/24 21:26 70 18 132/73 08/26/24 18:57 83 20 156/70 BP BP BP BP Pulse Ox 08/27/24 09:55 97 08/27/24 09:49 151/54 141/76 146/58 08/27/24 06:00 95 08/27/24 05:00 95 08/27/24 03:07 97 08/26/24 23:43 96 08/26/24 23:00 97 08/26/24 22:43 128/53 95 08/26/24 22:32 96 08/26/24 22:00 94 L 08/26/24 21:47 96 08/26/24 21:26 96 08/26/24 18:57 97 Intake and Output 08/26/24 08/27/24 08/27/24 22:59 06:59 14:59 Other: Weight 65.771 kg Results CBC & Chem 7: 08/26/24 19:40 08/26/24 19:40 Labs: Abnormal Lab Results - Last 24 Hours (Table) 08/26/24 08/26/24 Range/Units 19:40 19:40 PT 9.9 L (10.0-12.5) sec BUN 19 H (7-17) mg/dL Glucose 206 H (74-99) mg/dL Thrombosis Risk Factor Assmnt - Choose All That Apply Each Risk Factor Represents 3 Points: Age 75 years or older Thrombosis Risk Factor Assessment Total Risk Factor Score: 3 Thrombosis Risk Factor Assessment Level: Moderate Risk
[2024-08-27] MEDS ORDERED: ATORVASTATIN 20 MG TAB PO SCH (21:00)
[2024-08-27] MEDS ORDERED: clonazePAM 0.5 MG TAB PO SCH (21:00)
[2024-08-28] MEDS ORDERED: ASPIRIN 81 MG PO SCH (09:00)
[2024-08-28] MEDS ORDERED: CHOLECALCIFEROL 25 MCG (1000 IU) TABLET PO SCH (09:00)
[2024-08-28] MEDS ORDERED: NON FORMULARY DRUG (Biotin [Biotin Disolve] 10,000 MCG Tablet) PO SCH (09:00)
== END 2024-08-27 15:03 | disposition home or self-care (01) ==
LOC: EC 18:55 → 6NMEDSUR 21:23
PROVIDERS: ADMIT Hospitalist; ATTEND Hospitalist
DX: R07.89 Other chest pain (principal); R42 Dizziness and giddiness; J32.9 Chronic sinusitis, unspecified; E11.65 Type 2 diabetes mellitus with hyperglycemia; I10 Essential (primary) hypertension; E78.5 Hyperlipidemia, unspecified; F41.9 Anxiety disorder, unspecified; F17.200 Nicotine dependence, unspecified, uncomplicated; Z79.51 Long term (current) use of inhaled steroids; Z79.82 Long term (current) use of aspirin; Z79.84 Long term (current) use of oral hypoglycemic drugs; Z79.899 Other long term (current) drug therapy
CPT/HCPCS: 96376; 96372; 96374; 99285; 36415; 93005 ×2; 93306; 80053; 83735; 84484 ×2; 85025; 85610; 85730; 87636; 71046; 93880; 70450; G0378 ×2; J1650; J2270

== ENCOUNTER 2024-10-06 15:00 | Emergency (ER) | payer MEDICARE, OTHER ==
[2024-10-06 15:05] VITALS: TEMP 97.8
[2024-10-06 15:50] LABS: Basophils # (A) 0.04 10*3/uL (0.00-0.10); Basophils % (A) 0.7 %; Eosinophils # (A) 0.15 10*3/uL (0.04-0.35); Eosinophils % (A) 2.6 %; HCT 35.5 % (37.2-46.3); HGB 12.8 g/dL (12.0-15.0); Lymphocytes # (A) 1.51 10*3/uL (0.90-5.00); Lymphocytes % (A) 26.1 %; MCH 34.1 pg (27.0-32.0); MCHC 36.1 g/dL (32.0-37.0); MCV 94.7 fL (80.0-97.0); Mean Platelet Volume 10.2 fL (9.5-12.2); Monocytes # (A) 0.52 10*3/uL (0.20-1.00); Neutrophils # (A) 3.55 10*3/uL (1.80-7.70); Neutrophils % (A) 61.4 %; Platelet Count 190 10*3/uL (140-440); RBC 3.75 10*6/uL (4.10-5.20); RDW 14.7 % (11.5-14.5); WBC 5.78 10*3/uL (4.50-10.00)
--- NOTE | 2024-10-06 16:01 | ED ---
Recheck HPI - General Chief Complaint: Recheck/Abnormal Lab/Rx Stated Complaint: Abn labs Time Seen by Provider: 10/06/24 15:30 Source: patient, RN notes reviewed, old records reviewed Mode of arrival: ambulatory Limitations: no limitations - History of Present Illness Initial Comments: This is an 83-year-old female to the ER for evaluation of low potassium. Patient had outpatient lab testing showing low potassium in urgent evaluation in the ER. Patient has no complaints on arrival to the ER MD Complaint: abnormal lab (Low potassium) -: unknown Returns Today for: Called Because of Abnormal Lab/Test Symptoms Since Prior Visit: no new symptoms Context: called for abnormal lab result Associated Symptoms: none - Related Data Home Medications Medication Instructions Recorded Confirmed Aspirin EC [Ecotrin Low Dose] 81 mg PO DAILY 03/22/23 08/27/24 Biotin [Biotin Disolve] 10,000 mcg PO DAILY 03/22/23 08/27/24 Cholecalciferol [Vitamin D3 (25 25 mcg PO DAILY 03/22/23 08/27/24 Mcg = 1000 Iu)] Ibuprofen [Motrin Ib] 200 - 400 mg PO Q8H PRN 03/22/23 08/27/24 Meclizine [Antivert] 25 mg PO DAILY PRN 03/22/23 08/27/24 Sertraline [Zoloft] 25 mg PO DAILY@1200 03/22/23 08/27/24 amLODIPine [Norvasc] 10 mg PO HS 03/22/23 08/27/24 lisinopriL [Zestril] 20 mg PO HS 03/22/23 08/27/24 Sertraline [Zoloft] 50 mg PO DAILY@1200 08/27/24 08/27/24 clonazePAM [KlonoPIN] 0.5 mg PO BID 08/27/24 08/27/24 Previous Rx's Medication Instructions Recorded Fluticasone Nasal [place] [Flonase 2 spray EA NOSTRIL DAILY #1 ml 08/27/24 Nasal [place]] Rosuvastatin [Crestor] 20 mg PO HS #30 tablet 08/27/24 Allergies Allergy/AdvReac Type Severity Reaction Status Date / Time No Known Allergies Allergy Verified 10/06/24 15:05 Review of Systems ROS Statement: Those systems with pertinent positive or pertinent negative responses have been documented in the HPI. ROS Other: All systems not noted in ROS Statement are negative. Past Medical History Past Medical History: Diabetes Mellitus, Hyperlipidemia, Hypertension Additional Past Medical History / Comment(s): vertigo, chronic pain History of Any Multi-Drug Resistant Organisms: None Reported Past Surgical History: Cholecystectomy, Hysterectomy Past Psychological History: No Psychological Hx Reported Smoking Status: Current every day smoker Past Alcohol Use History: None Reported Past Drug Use History: None Reported General Exam Limitations: no limitations General appearance: alert, in no apparent distress Head exam: Present: atraumatic, normocephalic, normal inspection Eye exam: Present: normal appearance, PERRL, EOMI. Absent: scleral icterus, conjunctival injection, periorbital swelling ENT exam: Present: normal exam, mucous membranes moist Neck exam: Present: normal inspection. Absent: tenderness, meningismus, lymphadenopathy Respiratory exam: Present: normal lung sounds bilaterally. Absent: respiratory distress, wheezes, rales, rhonchi, stridor Cardiovascular Exam: Present: regular rate, normal rhythm, normal heart sounds. Absent: systolic murmur, diastolic murmur, rubs, gallop, clicks GI/Abdominal exam: Present: soft, normal bowel sounds. Absent: distended, tenderness, guarding, rebound, rigid Extremities exam: Present: normal inspection, full ROM, normal capillary refill. Absent: tenderness, pedal edema, joint swelling, calf tenderness Back exam: Present: normal inspection Neurological exam: Present: alert, oriented X3, CN II-XII intact Psychiatric exam: Present: normal affect, normal mood Skin exam: Present: warm, dry, intact, normal color. Absent: rash Course Vital Signs 10/06/24 10/06/24 15:02 17:04 Temperature 97.8 F 97.8 F Pulse Rate 74 61 Respiratory 20 16 Rate Blood Pressure 139/50 136/61 O2 Sat by Pulse 97 96 Oximetry - Reevaluation(s) Reevaluation #1: 10/06/24 17:08 Medical records reviewed Reevaluation #2: 10/06/24 17:08 Patient remains asymptomatic Reevaluation #3: 10/06/24 17:09 Patient informed of results questions answered Reevaluation #4: Was pt. sent in by a medical professional or institution (, PA, MANAGER LPN, urgent care, hospital, or penitentiary...) When possible be specific @ -no Did you speak to anyone other than the patient for history (EMS, parent, family, police, friend...)? What history was obtained from this source @ -no Did you review nursing and triage notes (agree or disagree)? Why? @ -agree Are old charts reviewed (outside hosp., previous admission, EMS record, old EKG, old radiological studies, urgent care reports/EKG's, penitentiary records)? Report findings @ -yes Differential Diagnosis (chest pain, altered mental status, abdominal pain women, abdominal pain men, vaginal bleeding, weakness, fever, dyspnea, syncope, headache, dizziness, GI bleed, back pain, seizure, CVA, palpatations, mental health, musculoskeletal)? @ -prior EKG interpreted by me (3pts min.). @ -yes X-rays interpreted by me (1pt min.). @ -no CT interpreted by me (1pt min.). @ -no U/S interpreted by me (1pt. min.). @ -no What testing was considered but not performed or refused? (CT, X-rays, U/S, labs)? Why? @ -none What meds were considered but not given or refused? Why? @ -none Did you discuss the management of the patient with other professionals (professionals i.e. , PA, MANAGER LPN, lab, RT, psych nurse, social work assistant, paint dipper, teacher, antisubmarine weapons officer, case packer and sealer)? Give summary @ -no Was smoking cessation discussed for >3mins.? @ -no Was critical care preformed (if so, how long)? @ -no Were there social determinants of health that impacted care today? How? (Homelessness, low income, unemployed, alcoholism, drug addiction, transportation, low edu. Level, literacy, decrease access to med. care, alf, rehab)? @ -none Was there de-escalation of care discussed even if they declined (Discuss DNR or withdrawal of care, Hospice)? DNR status @ -no What co-morbidities impacted this encounter? (DM, HTN, Smoking, COPD, CAD, Cancer, CVA, ARF, Chemo, Hep., AIDS, mental health diagnosis, sleep apnea, morbid obesity)? @ -none Was patient admitted / discharged? Hospital course, mention meds given and route, prescriptions, significant lab abnormalities, going to OR and other pertinent info. @ - 83 female suspected low potassium potassium found to be normal here in the ER patient can continue follow-up outpatient and discharged home no complaints patient has no complaints and no symptoms Discharge Undiagnosed new problem with uncertain prognosis? @ -no Drug Therapy requiring intensive monitoring for toxicity (Heparin, Nitro, Insulin, Cardizem)? @ -no Were any procedures done? @ -no Diagnosis/symptom? @ -Low potassium, normal finding here in the ER Acute, or Chronic, or Acute on Chronic? @ -Acute Uncomplicated (without systemic symptoms) or Complicated (systemic symptoms)? @ -Complicated Side effects of treatment? @ -no Exacerbation, Progression, or Severe Exacerbation? @ -exacerbation Poses a threat to life or bodily function? How? (Chest pain, USA, MS, pneumonia, PE, COPD, DKA, ARF, appy, cholecystitis, CVA, Diverticulitis, Homicidal, Suicidal, threat to staff... and all critical care pts) @ -no Medical Decision Making - Medical Decision Making 83 female suspected low potassium potassium found to be normal here in the ER patient can continue follow-up outpatient and discharged home no complaints patient has no complaints and no symptoms - Lab Data Result diagrams: 10/06/24 15:38 10/06/24 15:38 Lab Results 10/06/24 10/06/24 Range/Units 15:38 15:38 WBC 5.78 (4.50-10.00) 10*3/uL RBC 3.75 L (4.10-5.20) 10*6/uL Hgb 12.8 (12.0-15.0) g/dL Hct 35.5 L (37.2-46.3) % MCV 94.7 (80.0-97.0) fL MCH 34.1 H (27.0-32.0) pg MCHC 36.1 (32.0-37.0) g/dL Plt Count 190 (140-440) 10*3/uL MPV 10.2 (9.5-12.2) fL Immature Gran % (Auto) 0.2 % Neutrophils % 61.4 % Lymphocytes % 26.1 % Monocytes % 9.0 % Eosinophils % 2.6 % Basophils % 0.7 % Immature Gran # 0.01 (0.00-0.04) 10*3/uL Neutrophils # 3.55 (1.80-7.70) 10*3/uL Lymphocytes # 1.51 (0.90-5.00) 10*3/uL Monocytes # 0.52 (0.20-1.00) 10*3/uL Eosinophils # 0.15 (0.04-0.35) 10*3/uL Basophils # 0.04 (0.00-0.10) 10*3/uL Sodium 137 (137-145) mmol/L Potassium 3.8 (3.5-5.1) mmol/L Chloride 106 (98-107) mmol/L Carbon Dioxide 24 (22-30) mmol/L Anion Gap 7 mmol/L BUN 13 (7-17) mg/dL Creatinine 0.69 (0.52-1.04) mg/dL Est GFR (CKD-EPI)AfAm >90 (>60 ml/min/1.73 sqM) Est GFR (CKD-EPI)NonAf 81 (>60 ml/min/1.73 sqM) Glucose 184 H (74-99) mg/dL Calcium 8.8 (8.4-10.2) mg/dL Phosphorus 2.9 (2.5-4.5) mg/dL Magnesium 2.2 (1.6-2.3) mg/dL Total Bilirubin 0.8 (0.2-1.3) mg/dL AST 29 (14-36) U/L ALT 14 (4-34) U/L Alkaline Phosphatase 62 (38-126) U/L Total Protein 6.7 (6.3-8.2) g/dL Albumin 3.9 (3.5-5.0) g/dL - EKG Data -: EKG Interpreted by Me (EKG is sinus 60 MO 168 QRS 102 QTc 401) Disposition Clinical Impression: Normal exam Disposition: HOME SELF-CARE Condition: Good Instructions (If sedation given, give patient instructions): Normal Exam (ED) Is patient prescribed a controlled substance at d/c from ED?: No Referrals: Chris Alexander MD [Primary Care Provider] - 1-2 days Time of Disposition: 16:30
[2024-10-06] MEDS: SODIUM CHLORIDE 0.9% 1,000 ML IV ONE (16:06)
[2024-10-06 16:17] LABS: African American GFR (CKD) >90 (>60 ml/min/1.73 sqM); Anion Gap 7 mmol/L; Blood Urea Nitrogen 13 mg/dL (7-17); Calcium 8.8 mg/dL (8.4-10.2); Carbon Dioxide 24 mmol/L (22-30); Chloride 106 mmol/L (98-107); Glucose 184 mg/dL (74-99); Non-African American GFR(CKD) 81 (>60 ml/min/1.73 sqM); Sodium 137 mmol/L (137-145); Total Bilirubin 0.8 mg/dL (0.2-1.3)
[2024-10-06 16:18] LABS: ALT 14 U/L (4-34)
[2024-10-06 16:38] LABS: Phosphorus 2.9 mg/dL (2.5-4.5); Potassium 3.8 mmol/L (3.5-5.1)
[2024-10-06 16:39] LABS: AST 29 U/L (14-36); Albumin 3.9 g/dL (3.5-5.0); Alkaline Phosphatase 62 U/L (38-126); Magnesium 2.2 mg/dL (1.6-2.3); Total Protein 6.7 g/dL (6.3-8.2)
[2024-10-06] MEDS: POTASSIUM BICARBONATE/CIT AC 20 MEQ TABLET.EFF PO ONE (17:03)
[2024-10-06 17:05] VITALS: BP 136/61; PULSE 61; RESP 16
== END 2024-10-06 17:16 | disposition home or self-care (01) ==
LOC: EC 15:00
DX: Z71.2 Person consulting for explanation of examination or test findings (principal); F17.200 Nicotine dependence, unspecified, uncomplicated
CPT/HCPCS: 36415; 80053; 83735; 84100; 85025; 93005; 96360; 99285